=== PATIENT | female | born 1940 | race Caucasian/White ===

== ENCOUNTER 2016-10-11 06:42 | Inpatient (IN) ==
[2016-10-11] MEDS ORDERED: CeFAZolin Pre 2,000 MG/100 ML 2,000 MG/100 ML BAG IVPB ONE (06:54)
[2016-10-11] MEDS ORDERED: Albuterol 2.5 MG/3 ML NEBULIZER IH ONE (06:54)
[2016-10-11] MEDS ORDERED: Lidocaine -MPF 1% 2 ML VIAL ID ONE (06:54)
[2016-10-11] MEDS ORDERED: Albuterol 2.5 MG/3 ML NEBULIZER ONE (06:56)
[2016-10-11] MEDS ORDERED: *HR* Succinylcholine 200 MG/10 ML VIAL IVP ONE (07:00)
[2016-10-11] MEDS ORDERED: Lidocaine -MPF 2% 2 ML VIAL ONE ×2 (07:00→07:52)
[2016-10-11] MEDS ORDERED: *HR* Propofol 200 MG/20 ML VIAL IVP ONE (07:00)
[2016-10-11] MEDS ORDERED: *HR* Phenylephrine 10 MG/ML VIAL ONE (07:00)
[2016-10-11] MEDS ORDERED: *HR* FentaNYL (PF) 100 MCG/2 ML VIAL ONE (07:00)
[2016-10-11] MEDS ORDERED: Ringers Solution, Lactated 1,000 ML IVC SCH (07:00)
[2016-10-11] MEDS ORDERED: Ondansetron 4 MG/2 ML VIAL ONE (07:00)
[2016-10-11] MEDS ORDERED: *HR* Etomidate 40 MG/20 ML VIAL IVP ONE (07:00)
[2016-10-11] MEDS ORDERED: *HR* Midazolam HCl 2 MG/2 ML VIAL ONE (07:00)
[2016-10-11] MEDS ORDERED: Dexamethasone 4 MG/ML VIAL ONE (07:00)
[2016-10-11] MEDS ORDERED: Heparin 1,000 UNITS/500 mL NS 500 ML ONE (07:01)
--- NOTE | 2016-10-11 07:29 | Anesthesia Evaluation PreOp ---
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 Other Medical History: Renal (stage III CKD), Thyroid Anesthesia History: No Prior Anesthetic Complications Medications and Allergies Acetylcysteine [Nac] 600 mg PO BID 10/11/16 [History] Albuterol Sulfate [Ventolin Hfa] 2 puff PO Q4HR PRN 10/11/16 [History] Aspirin/Calcium Carbonate/Mag [Bufferin 325 mg Tablet] 650 mg PO QPM 10/11/16 [ History] Biotin 5 mg PO QDPC 10/11/16 [History] Budesonide/Formoterol 160/4.5 [Symbicort 160/4.5] 2 puff PO BID 10/11/16 [ History] LORazepam [Ativan] 1 mg PO HS 10/11/16 [History] Levothyroxine Sodium [Levoxyl] 75 mcg PO QDPC 10/11/16 [History] Lisinopril [Zestril] 10 mg PO DAILY 10/11/16 [History] Multivitamin [Multivitamins] 1 each PO QDPC 10/11/16 [History] Omeprazole [PriLOSEC] 20 mg PO DAILY 10/11/16 [History] hydroCHLOROthiazide [Hydrochlorothiazide] 25 mg PO DAILY 10/11/16 [History] Allergies Sulfa (Sulfonamide Antibiotics) Allergy (Verified 01/25/16 13:52) Hives - Meds/Allergy Pre-op Review Medications Reviewed: Yes Allergies Reviewed: Yes Beta Blockers on Current Med List: No Anesthesia Results - Labs Laboratory Tests 10/07/16 10/07/16 10/07/16 15:10 15:10 15:10 WBC 6.0 Hgb 10.8 L Hct 31.9 L Plt Count 217 PT 11.0 INR 1.0 APTT 27.0 Sodium 139 Potassium 3.7 Chloride 104 Carbon Dioxide 24 BUN 18 Creatinine Est GFR ( Amer) Est GFR (Non-Af Amer) Glucose 125 H Calculated Osmolality 291 Calcium 9.5 10/07/16 15:14 WBC Hgb Hct Plt Count PT INR APTT Sodium Potassium Chloride Carbon Dioxide BUN Creatinine 1.62 H Est GFR ( Amer) 37 L Est GFR (Non-Af Amer) 31 L Glucose Calculated Osmolality Calcium - Imaging EKG: report reviewed, image reviewed (SR with nonspecific ST/T wave abnormalities) Additional studies: Nuclear Stress Test: Impression: Perfusion imaging was negative for ischemia or infarct. Pharmacologic ECG was negative for ischemia at the level of heart rate achieved. Gated EF = >70%. Anesthesia Exam Weight: 48 kg NPO (# of Hours): >> 8 hrs - HEENT Pupil (Motor): Pupils equal, EOMI Mallampati: III Teeth: Poor dentition Oral Opening: Greater than 3 - NEEDLE BOARD REPAIRER LOC: Oriented NEEDLE BOARD REPAIRER Motor: Normal RUE, Normal LUE, Normal RLE, Normal LLE, Normal Face - Cardiac Rhythm: Regular Murmur: None - Pulmonary Breath Sounds: bilateral Clear Respiratory Effort: Symmetrical Anesthesia Assess/Plan ASA Score: 3 Modified [place] Scale for Level of Consciousness: Cooperative, oriented, and tranquil Anesthetic Plan: General Monitoring Plan: Standard Monitors, A-Line Recovery Plan: PACU
--- NOTE | 2016-10-11 07:50 | History & Physical Report ---
Date of Encounter: 10/11/16 Time of Encounter: 07:45 24 Hour HP Update - Instructions Instructions: If the History and Physical is less than 30 days old and was completed prior to A.M. admission and or procedure and has NOT been updated on calendar day of procedure please complete this update prior to performing procedure. - Update Patient reports changes in Medical Condition: No Changes in examination, assessment, or condition: No Changes in Medication: No Preop tests/diagnostics Reviewed: Yes Pre-Op MRSA Screen: Negative Surgery Remains Indicated: Yes Consent for Planned Operative Procedure(s) Verified: Yes - Pre-Operative Checklist Preoperative Checklist Indicated: Yes Prophylactic Antibiotic Ordered: Yes Home Medications Include Beta Mari: No Beta Mari Taken Today (Day of Surgery): No Beta Mari Taken Yesterday (Day Prior to Surgery): No Is VTE Prophylaxis Indicated?: Yes
[2016-10-11] MEDS ORDERED: Heparin 1,000 UNITS/500 mL NS 2,000 ML ONE (07:53)
[2016-10-11] MEDS ORDERED: EPHEDrine 50 MG/ML VIAL ONE (08:40)
[2016-10-11] MEDS ORDERED: Hydrocortisone Sodium Succ 100 MG/2 ML VIAL ONE (08:51)
[2016-10-11] MEDS ORDERED: *HR* HYDROmorphone 2 MG/ML SYRINGE ONE (08:58)
[2016-10-11] MEDS ORDERED: *HR* Heparin 5,000 UNIT/ML VIAL ONE (08:59)
[2016-10-11] MEDS ORDERED: *HR* HYDROmorphone (PF) 1 MG/ML SYRINGE IVP PRN (09:32)
--- NOTE | 2016-10-11 11:30 | Operative Note ---
Date of procedure: 10/11/16 Pre-op diagnosis: AAA Post-op diagnosis: same Procedure: Endovascular repair of AAA Complications: none Anesthesia: GETA Surgeon: Eitan Isaac Estimated blood loss (cc): 150 Specimen: none Condition: stable Disposition: PACU Procedure in Detail: Vicki Ortiz is a 76-year-old white female who was found to have a 5-1/2 cm abdominal aortic aneurysm on evaluation for left hip pain. The patient now comes to surgery for elective endovascular aneurysm repair. Procedure After informed consent was obtained the patient was taken to the operating room. General endotracheal anesthesia was established with arterial line pressure monitoring. A timeout protocol was observed after the patient was sterilely prepped and draped. 2 incisions were then made one in each groin. Dissection was carried down to perform an open exposure of the femoral systems. Control was obtained of the femoral arteries. After this was done femoral arteries were punctured with an 18-gauge needle in a retrograde orientation. A guidewire was then inserted into the aorta via both groins. The needle was removed and an 8 Egyptian sheath and dilator was placed into the vessels. Sheaths were aspirated and flushed after removal of the dilator. Heparin was given in a dose of 5000 units intravenously. A pigtail catheter was then inserted over the wire in the right groin. An abdominal aortogram was then obtained to identify and sander the renal arteries. With this done an Amplatz wire was placed through the pigtail catheter into the supra renal aorta and into the proximal aspect of the descending thoracic aorta. The main body was then selected and this was a Medtronic IIs Endurant graft system bifurcated main body. This was a 25 x 14 x 103 mm. component. This was placed into the juxtarenal abdominal aorta. The suprarenal stent was deployed. The device was deployed to the point that the docking limb for the left side was open. This right-sided device was then left in position and attention was then directed to the left side. Using the guidewire placed via the left side a Rubicon catheter was used and this was placed so that the wire could then selectively be placed into the left docking limb. After this was secured the Rubicon catheter was advanced into the main body and contrast was injected to ensure that the device was in the correct location. With this done an Amplatz wire was then inserted and advanced and also placed in the proximal aspect of the descending thoracic aorta. A retrograde angiogram through the left groin sheath was then performed. With this information the left limb stent graft was selected. A 16 x 13 x 124 mm device was selected. This was then placed under fluoroscopic control into the left sided docking limb and in to the distal aspect of the left common iliac artery. After this was achieved the carrying device was removed. An 11 Egyptian sheath was then placed into the left groin. Attention was then directed back to the right side. The right-sided device was then totally deployed. The carrier device was then removed and 11 Egyptian sheath placed into the right groin. A retrograde angiogram was performed after reinsertion of the pigtail catheter with radio opaque markers for measurement. The third and final component was then selected and this was a 16 x 10 x 124 mm stent graft limb. This was then deployed under fluoroscopic control with docking into the main body and extension down to the distal aspect of the right common iliac artery. The carrying device was then removed and the 11 Egyptian sheath reinserted. The Reliant balloon was then inserted via both the right and left sides. It was gently inflated in the graft so that the graft would be gently totally expanded to adhere to the wall of the aorta proximally and distally. With this done the pigtail catheter was reinserted and a completion aortogram was obtained. This demonstrated patency of the renal arteries without compromise of the lumen of these vessels. The iliac bifurcation was preserved on both sides. There were no findings of endovascular leaks. The graft appeared to be in appropriate position and so therefore the carrying devices and wires were removed. The groins were then irrigated and the sheaths removed from the common femoral arteries. The arterial puncture site was repaired with 6-0 Prolene suture. After appropriate backbleeding and flushing pulsatile flow was restored to the lower extremities. Excellent Doppler signals were identified. There were no hemodynamic distress issues noted with opening of the limbs. The groin areas were then irrigated with antibiotic containing solution. Hemostasis was achieved. The incisions were closed in layers using absorbable suture. A dry sterile dressing was applied over each groin incision. He has noted blood loss was 150 mL. The patient was extubated in the operating room and taken to the recovery room in stable condition.
--- NOTE | 2016-10-11 12:21 | Anesthesia Evaluation Post Op ---
Date of Encounter: 10/11/16 Time of Encounter: 12:19 - Vital Signs Vital Signs: Last Vital Signs Temp 97.0 F L 10/11/16 12:08 Pulse 65 10/11/16 12:08 Resp 16 10/11/16 12:08 BP 92/43 10/11/16 12:08 Pulse Ox 99 10/11/16 12:08 - Lungs Lungs: Clear Ascult./Percussion - Airway Airway: Non-obstructed - Cardiovascular Regular Rate - Mental Status Mental Status: Alert & Oriented, Answers Appropriately - Pain Pain Scale: 2 - Nausea Vomiting Nausea Vomiting: Not Present - Hydration Hydration: NPO, Guerrero catheter - Discharge PostOp Status: Transfer Patient to floor
[2016-10-11] MEDS ORDERED: *HR* Morphine 2 MG/ML SYRINGE IVP PRN ×2 (12:35)
[2016-10-11] MEDS ORDERED: Acetaminophen 325 MG TABLET PO PRN (12:35)
[2016-10-11] MEDS ORDERED: Ondansetron 4 MG/2 ML VIAL IVP PRN (12:35)
[2016-10-11] MEDS ORDERED: Naloxone 0.4 MG/ML INJ IVP PRN (12:35)
--- NOTE | 2016-10-11 13:33 | Anesthesia Procedures ---
Date of Encounter: 10/11/16 Time of Encounter: 08:10 Procedures: Anesthesia - Arterial Line Consent obtained: written consent Time out performed: Yes Sedation: Versed (mg): 1 Sedation: Fentanyl (mcg): 50 Supplemental Oxygen via Nasal Cannula (L/min): 2 Local Anesthetic: Lidocaine 1% Size (Gauge): 20 Length (inches): 1 3/4 Technique Used: sterile prep, direct puncture technique Post-Procedure: line taped into place Patient tolerated procedure: well Complications: none Site: Radial R
[2016-10-11] MEDS: ceFAZolin 2,000 MG in D5% in Water 100 ML IVPB SCH ×2 (15:39→23:47)
[2016-10-11] MEDS: Ringers Solution, Lactated 1,000 ML IVC SCH (15:39)
[2016-10-11] MEDS: MAG PO SCH (15:40)
[2016-10-11] MEDS: CALCIUM CARBONATE PO SCH (15:40)
[2016-10-11] MEDS: ASPIRIN PO SCH (15:40)
[2016-10-11] MEDS: *HR* LORazepam 1 MG TABLET PO SCH (19:51)
[2016-10-11] MEDS: *HR* Acetylcysteine 20% 600 MG/3 ML ORAL SYRINGE PO SCH (20:11)
[2016-10-11] MEDS: Budesonide/Formoterol 160/4.5 MDI IH SCH (20:28)
--- NOTE | 2016-10-11 22:27 | Discharge Summary ---
Date of Encounter: 10/12/16 Time of Encounter: 09:35 - Discharge Diagnosis (1) AAA (abdominal aortic aneurysm) Priority: Primary Status: Acute Comments: Patient was being worked up for left hip pain with a CT scan. This revealed a 5.5 cm abdominal aortic aneurysm. The patient was then referred to vascular surgery for that worked the patient up and recommended elective surgical repair. The patient was admitted for this procedure. Under general endotracheal anesthesia the patient underwent an endovascular abdominal aortic aneurysm repair using a Medtronics device. The patient tolerated the procedure well and there were no periprocedural complications. Qualifiers: Presence of rupture: without rupture Qualified Code(s): I71.4 - Abdominal aortic aneurysm, without rupture (2) CKD (chronic kidney disease) stage 3, GFR 30-59 ml/min Priority: Secondary Status: Chronic Comments: Patient is under medical care for her CKD. The patient was given extra fluid as well as Mucomyst and intravenous sodium bicarbonate around the time of her exposure to contrast which was used during the endovascular aneurysm repair. (3) COPD (chronic obstructive pulmonary disease) with chronic bronchitis Priority: Secondary Status: Chronic Comments: Patient has long history of chronic bronchitis. (4) Acute blood loss as cause of postoperative anemia Priority: Secondary Status: Acute Comments: Patient has combination of aggressive hydration and blood loss associated with surgery causing her hemoglobin to be 7.2. As she has a borderline O2 saturation high 80s and low 90s and a history of COPD chronic bronchitis I feel it is indicated to offer her 1 unit of blood transfusion this morning prior to discharge. I have discussed this with the patient. This will assist with her oxygenation and also her overall sense of well-being and recuperation following surgery. The patient will also be given Lasix intravenously following the blood transfusion and discharge will been occur later this afternoon. - Discharge Medications Prescriptions: HYDROcodone/Acet 5/325 mg [[place] 5-325 mg] 1 tab PO Q6HR PRN #10 tab PRN Reason: Moderate Pain Ferrous Sulfate 324 mg PO BID #60 tablet.dr Zheng Medications: Albuterol Sulfate [Ventolin Hfa] 2 puff PO Q4HR PRN 10/11/16 [History] Aspirin/Calcium Carbonate/Mag [Bufferin 325 mg Tablet] 650 mg PO QPM 10/11/16 [ History] Biotin 5 mg PO QDPC 10/11/16 [History] Budesonide/Formoterol 160/4.5 [Symbicort 160/4.5] 2 puff PO BID 10/11/16 [ History] LORazepam [Ativan] 1 mg PO HS 10/11/16 [History] Levothyroxine Sodium [Levoxyl] 75 mcg PO QDPC 10/11/16 [History] Lisinopril [Zestril] 10 mg PO DAILY 10/11/16 [History] Multivitamin [Multivitamins] 1 each PO QDPC 10/11/16 [History] Omeprazole [PriLOSEC] 20 mg PO DAILY 10/11/16 [History] hydroCHLOROthiazide [Hydrochlorothiazide] 25 mg PO DAILY 10/11/16 [History] Ferrous Sulfate 324 mg PO BID #60 tablet. 10/12/16 [Rx] HYDROcodone/Acet 5/325 mg [[place] 5-325 mg] 1 tab PO Q6HR PRN #10 tab 10/12/16 [ Rx] Allergies/Adverse Reactions: Allergies Sulfa (Sulfonamide Antibiotics) Allergy (Verified 01/25/16 13:52) Hives Date of admission: 10/11/16 12:31 Primary care physician: Sheila Herrera Consults: None Procedure(s) Performed: Endovascular repair of abdominal aortic aneurysm Discharging clinician: Eitan Isaac Anticipated date of discharge: 10/12/16 - Patient Status Disposition: Home, Self-Care Condition: Good Functional capacity at discharge: independent ambulation Overall status at discharge: patient is progressing back to baseline - Discharge Instructions Follow Up With: Flora Madsen CNP [Advanced Practice Nurse] - 10/17/16 10:30 am Eitan Isaac MD [Partnered Physician] - 10/21/16 8:30 am (This appointment is in [place]) Additional Instructions: Keep surgical incisions dry for 5 days following surgery. No lifting greater than 10 pounds. No automobile driving. Patient may ambulate as tolerated. Patient may use stairs as tolerated. Resume usual home medications. Patient will receive a prescription for iron supplement and [place] for analgesia upon discharge. - Diet and Activity Activity: increase activity as tolerated Diet: advance to your usual diet - Hospital Course Hospital course: Ms. Ortiz is a 76 year old female With a 5.5 cm abdominal aortic aneurysm. This was found on evaluation of left hip pain. The patient underwent endovascular repair of the aneurysm yesterday. The patient had an uneventful perioperative course. The patient's renal function remained stable and the creatinine actually improved following surgery with the preoperative hydration and bicarbonate and Mucomyst. The patient was noted to have a decrease in her hemoglobin to 7.2. This is a combination of hydration and blood loss associated with the surgery. Therefore as she has COPD with borderline O2 saturation I recommended that one unit of blood be transfused prior to discharge. This be done this morning and then the patient will be given Lasix and then will be discharged to home later today. Instructions were given in regards to diet and exercise and medications as well as wound care. The patient will receive a prescription for analgesia and iron supplement upon discharge. - Time Spent with Patient Total time spent providing and/or coordinating discharge services: Exam Vital Signs, Last 4 Hours Temp Pulse Resp BP Pulse Ox 10/11/16 20:28 16 96 10/11/16 19:12 97.7 F 71 18 99/59 95 General: Present: Conversant, No Apparent Distress, Well developed, Well nourished HEENT: Present: Atraumatic Neck: Absent: JVD Cardiac: Present: Reg Rate and Rhythm Lungs: Present: Decreased breath sounds Neuro: Present: Alert and responsive, No focal deficits noted Abdomen: Present: Soft, Non-tender. Absent: Masses Vascular: Present: Surgical incisions (Groin incisions are clean and dry.) Skin: Present: No rashes noted on visualized skin - VTE Documentation of Mechanical Device: Intermittent pneumatic compression device
[2016-10-12] MEDS: *HR* HYDROcodone/Acet 5/325 mg TABLET PO PRN ×2 (03:24→17:42)
[2016-10-12 03:29] LABS: Basophils % 0.1 %; Eosinophils % 0.2 %; Hematocrit 21.5 % (35.3-44.9); Hemoglobin 7.2 g/dL (11.5-15.4); Immature Granulocytes % 0.4 % (0-4); Lymphocytes # 1.1 K/mcL (0.6-4.6); Lymphocytes % 11.2 %; Mean Corpuscular HGB Conc 33.5 g/dL (31.6-35.5); Mean Corpuscular Hemoglobin 32.4 pg (28.0-33.3); Mean Corpuscular Volume 96.8 fL (83.0-100.0); Mean Platelet Volume 10.4 fL (9.4-12.4); Monocytes # 0.8 K/mcL (0.0-1.3); Neutrophils # 7.8 K/mcL (1.6-8.9); Platelet Count 115 K/mcL (140-400); Red Blood Count 2.22 M/mcL (3.82-4.97); Red Cell Distribution Width 13.5 % (11.5-14.5); Segmented Neutrophils % 80.1 %
[2016-10-12 03:39] LABS: BUN/Creatinine Ratio 14 (6-26); Blood Urea Nitrogen 14 mg/dL (7-20); Carbon Dioxide 28 mEq/L (19-29); Chloride 105 mEq/L (98-109); Glucose 107 mg/dL (70-99); Osmolality,Calculated 285 (280-300); Potassium 3.5 mEq/L (3.5-4.5); Sodium 137 mEq/L (136-145); eGFR For African Americans > 60 (> 60); eGFR For Non-African Americans 55 (> 60)
[2016-10-12] MEDS: ceFAZolin 2,000 MG in D5% in Water 100 ML IVPB SCH (06:32)
[2016-10-12] MEDS: Budesonide/Formoterol 160/4.5 MDI IH SCH ×2 (07:55→22:30)
[2016-10-12] MEDS: Ringers Solution, Lactated 1,000 ML IVC SCH (08:50)
[2016-10-12] MEDS ORDERED: Furosemide 20 MG/2 ML VIAL IVP ONE (08:58)
[2016-10-12] MEDS ORDERED: hydroCHLOROthiazide 25 MG TABLET PO SCH (09:00)
[2016-10-12] MEDS: Multivit/Ca/Min/Fe/FA 1 TAB TABLET PO SCH (09:18)
[2016-10-12] MEDS: (Biotin [Biotin] 5 MG) PO SCH (09:19)
[2016-10-12] MEDS ORDERED: 0.9 % Sodium Chloride 250 ML ONE (10:05)
[2016-10-12] MEDS: *HR* Acetylcysteine 20% 600 MG/3 ML ORAL SYRINGE PO SCH ×2 (11:25→20:23)
[2016-10-12] MEDS ORDERED: Furosemide 40 MG/4 ML VIAL IVP ONE (14:36)
[2016-10-12] MEDS ORDERED: Furosemide 40 MG/4 ML VIAL ONE (14:40)
[2016-10-12] MEDS: CALCIUM CARBONATE PO SCH (17:43)
[2016-10-12] MEDS: MAG PO SCH (17:43)
[2016-10-12] MEDS: ASPIRIN PO SCH (17:43)
[2016-10-12] MEDS: Ipratropium/Albuterol Neb 3 ML IH SCH ×2 (17:55→22:30)
[2016-10-12 19:04] LABS: Basophils % 0.1 %; Eosinophils # 0.1 K/mcL (0.0-0.6); Eosinophils % 0.8 %; Hematocrit 28.5 % (35.3-44.9); Immature Granulocytes % 0.5 % (0-4); Lymphocytes % 9.5 %; Mean Corpuscular Hemoglobin 30.2 pg (28.0-33.3); Mean Corpuscular Volume 91.6 fL (83.0-100.0); Mean Platelet Volume 10.5 fL (9.4-12.4); Monocytes # 1.1 K/mcL (0.0-1.3); Monocytes % 10.6 %; Neutrophils # 8.4 K/mcL (1.6-8.9); Platelet Count 129 K/mcL (140-400); Red Blood Count 3.11 M/mcL (3.82-4.97); Red Cell Distribution Width 17.6 % (11.5-14.5); Segmented Neutrophils % 78.5 %
[2016-10-12 19:05] LABS: Hemoglobin 9.4 g/dL (11.5-15.4)
[2016-10-12 20:12] LABS: BUN/Creatinine Ratio 13 (6-26); Blood Urea Nitrogen 14 mg/dL (7-20); Calcium 8.4 mg/dL (8.6-10.8); Carbon Dioxide 32 mEq/L (19-29); Chloride 99 mEq/L (98-109); Glucose 123 mg/dL (70-99); Magnesium 0.9 mg/dL (1.6-2.6); Osmolality,Calculated 288 (280-300); Phosphorous 2.7 mg/dL (2.3-4.7); Potassium 3.1 mEq/L (3.5-4.5); Sodium 138 mEq/L (136-145); eGFR For African Americans > 60 (> 60); eGFR For Non-African Americans 50 (> 60)
[2016-10-12] MEDS ORDERED: D10 IVPB ONE (20:15)
[2016-10-12] MEDS ORDERED: MAGNESIUM SULFATE IVPB ONE (20:15)
[2016-10-12] MEDS ORDERED: WATER IVPB ONE (20:15)
[2016-10-12] MEDS: *HR* LORazepam 1 MG TABLET PO SCH (20:19)
--- NOTE | 2016-10-12 20:20 | Internal Medicine Consult Note ---
Date of Encounter: 10/12/16 Time of Encounter: 20:17 - Assessment and Plan (1) New onset a-fib Current Visit: Yes Status: Acute Assessment and plan: Replace IV Mg and PO K. start 30mg QID dilt PO in an attempt to spare gtt therapy. Will monitor overnight for now. Keep mg >2, K>4. Hold home HCTZ with cardizem to avoid low BP (2) AAA (abdominal aortic aneurysm) Current Visit: Yes Status: Acute Assessment and plan: management per surgery Qualifiers: Presence of rupture: without rupture Qualified Code(s): I71.4 - Abdominal aortic aneurysm, without rupture (3) CKD (chronic kidney disease) stage 3, GFR 30-59 ml/min Current Visit: Yes Status: Chronic Assessment and plan: continue to monitor with fluid manipulation and optimization (4) COPD (chronic obstructive pulmonary disease) with chronic bronchitis Current Visit: Yes Status: Chronic Assessment and plan: appears stable, mild concomitant vol overload being addressed Internal Medicine - CN: HPI - Data of Consult Requesting Physician: Eitan Isaac MD - Consult Narrative Reason for consult: AFib History of present illness: Ms. Ortiz is a 76 year old female with a hx of HTN and presents for elective EVAR 10/11/16 whose hospital course was c/b respiratory insufficiency and subsequent AFib rvr. She does not have a hx of AFib. She was noted to be tachycardic on monitor at 630 pm this evening with AFib confirming AFib. Post- surgery, her discharge was delayed due to new oxygen requirement. She received 1 pRBC to correct her anemia and also received a total of 60mg lasix today with output of > 3 L of urine. Recheck of electrolytes indicated low Mg and low K. She does not appear to be overtly symptoms of her AFib. Denies any improving or worsening factors. She tells me that she did not feel ready to return home. Past Med Surg Social Fam HX - Past Medical History Medical history: arthritis, hypertension, thyroid disease Psychiatric history: anxiety - Past Surgical History Surgical History: non-contributory, cataract - Social History Smoking Status: Former smoker Smokeless Tobacco Status: No Alcohol use: none Drug use: none Review of systems: ROS 14 point review of systems reviewed as best as possible given presentation. Pertinent positive or negative as per HPI or otherwise reviewed as negative Internal Medicine - CN: Meds Albuterol Sulfate [Ventolin Hfa] 2 puff PO Q4HR PRN 10/11/16 [History] Aspirin/Calcium Carbonate/Mag [Bufferin 325 mg Tablet] 650 mg PO QPM 10/11/16 [ History] Biotin 5 mg PO QDPC 10/11/16 [History] Budesonide/Formoterol 160/4.5 [Symbicort 160/4.5] 2 puff PO BID 10/11/16 [ History] LORazepam [Ativan] 1 mg PO HS 10/11/16 [History] Levothyroxine Sodium [Levoxyl] 75 mcg PO QDPC 10/11/16 [History] Lisinopril [Zestril] 10 mg PO DAILY 10/11/16 [History] Multivitamin [Multivitamins] 1 each PO QDPC 10/11/16 [History] Omeprazole [PriLOSEC] 20 mg PO DAILY 10/11/16 [History] hydroCHLOROthiazide [Hydrochlorothiazide] 25 mg PO DAILY 10/11/16 [History] Ferrous Sulfate 324 mg PO BID #60 tablet. 10/12/16 [Rx] HYDROcodone/Acet 5/325 mg [[place] 5-325 mg] 1 tab PO Q6HR PRN #10 tab 10/12/16 [ Rx] Allergies Sulfa (Sulfonamide Antibiotics) Allergy (Verified 01/25/16 13:52) Hives Internal Medicine - CN: Exam - Constitutional Vitals: Temp Pulse Resp BP Pulse Ox 98.7 F 146 16 105/62 91 10/12/16 19:10 10/12/16 19:10 10/12/16 19:10 10/12/16 19:10 10/12/16 19:10 Exam: General - AAO x 3 Psych - Appropriate affect/speech. No agitation Eyes - MASOUD. Eye lids intact. No scleral icterus ENT - Oral mucosa pink, dentition intact. External ear clear/dry/intact. No thyromegaly Lymphatics - No cervical/inguinal lympadenopathy Neuro - No gross peripheral or central neuro deficits with intact CN 2-12 exam Heart - irregularly irregular. S1 and S2 present. No added HS/murmurs appreciated. No elevated JVD appreciated. No calf swellings/erythema Lung - Adequate air entry b/l, No crackes/wheezes appreciated GI - Soft, non-tender. No hepatosplenomegaly/ascities. BS+ - No CVA/suprapubic tenderness or palpable bladder distension Skin - Intact. No rash/petechiae/ecchymosis. Warm extremities MSK - Joints with normal ROM. No joint swellings Internal Medicine - CN: Reslt - Labs CBC & Chem 7: 10/12/16 18:55 10/12/16 18:55 Labs: Short CBC 10/12/16 10/12/16 Range/Units 03:25 18:55 WBC 9.7 D 10.7 (4.3-11.1) K/mcL Hgb 7.2 L D 9.4 L D (11.5-15.4) g/dL Hct 21.5 L 28.5 L (35.3-44.9) % Plt Count 115 L 129 L (140-400) K/mcL Neutrophils # 7.8 8.4 (1.6-8.9) K/mcL BMP 10/12/16 10/12/16 03:25 18:55 Sodium 137 138 Potassium 3.5 3.1 L Chloride 105 99 Carbon Dioxide 28 32 H BUN 14 14 Creatinine 0.99 1.06 Glucose 107 H 123 H Calcium 8.0 L 8.4 L - Impressions Impressions Chest X-Ray 10/12/16 14:38 IMPRESSION: Chronic COPD. Right basal infiltrate may represent pneumonia. Trace of right pleural effusion. D/ / 10/12/2016 16:36:41 Bethany Poole MD / Alisha Chacon Interpreting Provider: Bethany Poole MD Consult Discharge Plan - Plan Instructions: Hydrocodone/Acetaminophen (By mouth), Blood Transfusion (DC), Peripheral Vascular Disorders (DC), Endovascular Abdominal Aortic Aneurysm Repair (DC), Anemia (GEN) Additional Instructions: Keep surgical incisions dry for 5 days following surgery. No lifting greater than 10 pounds. No automobile driving. Patient may ambulate as tolerated. Patient may use stairs as tolerated. Resume usual home medications. Patient will receive a prescription for iron supplement and [place] for analgesia upon discharge. Referrals: Flora Madsen CNP [Advanced Practice Nurse] - 10/17/16 10:30 am Eitan Isaac MD [Partnered Physician] - 10/21/16 8:30 am (This appointment is in [place]) Prescriptions: HYDROcodone/Acet 5/325 mg [[place] 5-325 mg] 1 tab PO Q6HR PRN #10 tab PRN Reason: Moderate Pain Ferrous Sulfate 324 mg PO BID #60 tablet.
[2016-10-12] MEDS ORDERED: Magnesium Sulfate 2 GM in D5% in Water 100 ML IVPB SCH (20:45)
[2016-10-12] MEDS ORDERED: Levofloxacin 750 MG/150 ML 750 MG/150 ML BAG IVPB ONE (21:00)
[2016-10-12] MEDS: Magnesium Sulfate 2 GM in D5% in Water 100 ML IVPB SCH (21:23)
[2016-10-12] MEDS ORDERED: Magnesium Sulfate 1 GM in D5% in Water 100 ML IVPB ONE (22:45)
[2016-10-13] MEDS: Magnesium Sulfate 2 GM in D5% in Water 100 ML IVPB SCH (01:00)
[2016-10-13 01:29] LABS: Basophils % 0.1 %; Eosinophils # 0.1 K/mcL (0.0-0.6); Eosinophils % 0.5 %; Hematocrit 27.7 % (35.3-44.9); Hemoglobin 9.2 g/dL (11.5-15.4); Immature Granulocytes % 0.5 % (0-4); Lymphocytes % 9.1 %; Mean Corpuscular HGB Conc 33.2 g/dL (31.6-35.5); Mean Corpuscular Hemoglobin 30.3 pg (28.0-33.3); Mean Corpuscular Volume 91.1 fL (83.0-100.0); Mean Platelet Volume 10.8 fL (9.4-12.4); Monocytes # 1.1 K/mcL (0.0-1.3); Monocytes % 9.6 %; Neutrophils # 8.9 K/mcL (1.6-8.9); Platelet Count 127 K/mcL (140-400); Red Blood Count 3.04 M/mcL (3.82-4.97); Red Cell Distribution Width 17.8 % (11.5-14.5); Segmented Neutrophils % 80.2 %
[2016-10-13] MEDS: Ipratropium/Albuterol Neb 3 ML IH SCH ×4 (03:53→21:27)
[2016-10-13] MEDS ORDERED: Magnesium Sulfate 2 GM in D5% in Water 100 ML IVPB PRN (04:12)
[2016-10-13] MEDS ORDERED: Sodium Phosphate 30 MMOL in D5% in Water 100 ML IVPB PRN (04:12)
[2016-10-13] MEDS ORDERED: Calcium Gluconate 1,000 MG in D5% in Water 100 ML IVPB PRN (04:12)
[2016-10-13 05:45] LABS: Ionized Calcium 1.07 mmol/L (1.15-1.35)
[2016-10-13 05:55] LABS: Calcium 8.5 mg/dL (8.6-10.8); Magnesium 2.5 mg/dL (1.6-2.6); Phosphorous 2.1 mg/dL (2.3-4.7); Potassium 3.6 mEq/L (3.5-4.5)
[2016-10-13] MEDS ORDERED: Calcium Gluconate 1,000 MG in D5% in Water 100 ML IVPB ONE (06:35)
--- NOTE | 2016-10-13 06:51 | Pulmonology Consult Note ---
Date of Encounter: 10/13/16 Time of Encounter: 06:51 Assessment and Plan (1) Acute respiratory failure with hypoxia Current Visit: Yes Status: Acute Impression: In conclusion is a 76-year-old woman with postoperative acute respiratory failure which is likely secondary to pneumonia complicated by mild COPD exacerbation. Clearly in the postoperative setting she has some degree of atelectasis which is also contributing to her noted hypoxemia. Clearly pulmonary embolus is in the differential diagnosis for postoperative hypoxemia although her Well's score is quite low and I feel that we have several alternative hypotheses that better explain this hypoxia. Additionally, I have a strong suspicion for underlying heart failure with preserved ejection fraction ( diastolic dysfunction) although she does not have a recent echocardiogram demonstrating this. If this is the case the acute setting atrial fibrillation ( likely s/t to hypoxemia) with rapid ventricular response would also be expected to increase cardiac filling pressures and lead to resultant pulmonary edema which would also complicate this picture. Recs: -Cont Supplemental O2 to keep SaO2 % >88-92% -I have sent blood cultures and sputum cultures to further evaluate for PNA those results are pending at this time -I started empiric antimicrobial coverage with Levaquin which can be modified based upon microbiological sensitivities -I would recommend aggressive pulmonary hygiene including incentive spirometry out of bed to chair and ambulation as tolerated/safe with supervision -I have added a scheduled andrew/rogerio to her bronchodilator regimen along with continuation of home ICS/LABA -Recommend 40 mg prednisone by mouth for the next 5 days -I have added on BNP to her labs to evaluate for HFpEF and would recommend 2D ECHO and formal Cardiology evaluation for w/u of arial fibrillation and need for long-term anticoagulation -Net even to slightly negative fluid balance with daily monitoring of renal function and electrolyte replacement (goal mg2+ >2.0 and K+ >4.0) -Chemical DVT prophylaxis unless Surgery service feels this is contraindicated Pulmonary will continue to follow. (2) COPD with acute exacerbation Current Visit: Yes Status: Acute (3) Atrial fibrillation with rapid ventricular response Current Visit: Yes Status: Acute (4) Former smoker Current Visit: Yes Status: Acute (5) DVT prophylaxis Current Visit: Yes Status: Acute History of Present Illness Consult date: 10/12/16 Requesting physician: Eitan Isaac Reason for consult: hypoxemia Chief complaint: Productive cough History of present illness: Ms. Ortiz is a pleasant 76-year-old woman who I had the pleasure to see a day on the inpatient pulmonary consult service. A consult was placed as the patient is in the postoperative period status post endovascular repair for a 5.5 cm abdominal aortic aneurysm. The surgery itself was quite successful postoperatively patient is noted to have it new oxygen requirement. She has been requiring anywhere from 2-3 L nasal cannula to keep saturation around 90-92 %. His speaking with her today she tells me that she has had a cough productive of yellowish-brown sputum for the last several weeks even leading up into the time of surgery. She is also felt chest heaviness during this time. She had a chest x-ray performed yesterday which is notable for a possible right- sided infiltrate and she has been given a loop diuretic for possible pulmonary edema she is nearly 3 L negative after that. Her course was further complicated overnight and that she was noted to go into atrial fibrillation with rapid ventricular response in the room when I am seeing her now she has been in and out of atrial fibrillation with RVR apparently she was placed on a unique blocking agent by mouth for this she was also noted to have a low magnesium (less than 1) for which her magnesium is undergoing repletion. Review of her past medical records I see that she has had pulmonary function testing prior to surgery which is notable for mild obstruction and a severe reduction in efficiency of oxygen transfer processes DLCO) is out of proportion to the degree of obstruction seen on spirometry. She also had a preoperative nuclear stress test which was negative for inducible ischemia and was notable for a preserved ejection fraction. She had a long smoking history although she quit in 2001. She was diagnosed with COPD at that time and has had recurrent bouts of bronchitis subsequently. Her symptoms are managed on a long-acting inhaled corticosteroid/long-acting beta agonist combination metered dose inhaler (Symbicort) she has noted that in the past when she gets bouts of bronchitis and the only things that seems to alleviate her symptoms has been enteral steroids. Although she tries to stay fairly active including doing gardening she has noted some limitation in her activities secondary to dyspnea. I do not see a recent 2-dimensional echocardiogram in her medical record. 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 Otherwise she denies any exposure to environmental or industrial pollutants Past Med Surg Social Fam HX - Past Medical History Medical history: arthritis, hypertension, thyroid disease Psychiatric history: anxiety - Past Surgical History Surgical History: non-contributory, cataract - Social History Smoking Status: Former smoker Smokeless Tobacco Status: No Alcohol use: none Drug use: none Medications and Allergies Albuterol Sulfate [Ventolin Hfa] 2 puff PO Q4HR PRN 10/11/16 [History] Aspirin/Calcium Carbonate/Mag [Bufferin 325 mg Tablet] 650 mg PO QPM 10/11/16 [ History] Biotin 5 mg PO QDPC 10/11/16 [History] Budesonide/Formoterol 160/4.5 [Symbicort 160/4.5] 2 puff PO BID 10/11/16 [ History] LORazepam [Ativan] 1 mg PO HS 10/11/16 [History] Levothyroxine Sodium [Levoxyl] 75 mcg PO QDPC 10/11/16 [History] Lisinopril [Zestril] 10 mg PO DAILY 10/11/16 [History] Multivitamin [Multivitamins] 1 each PO QDPC 10/11/16 [History] Omeprazole [PriLOSEC] 20 mg PO DAILY 10/11/16 [History] hydroCHLOROthiazide [Hydrochlorothiazide] 25 mg PO DAILY 10/11/16 [History] Ferrous Sulfate 324 mg PO BID #60 tablet. 10/12/16 [Rx] HYDROcodone/Acet 5/325 mg [[place] 5-325 mg] 1 tab PO Q6HR PRN #10 tab 10/12/16 [ Rx] Allergies Sulfa (Sulfonamide Antibiotics) Allergy (Verified 01/25/16 13:52) Hives All Systems: A 10-system review of systems was performed and is negative for pertinent findings except as documented above in the HPI. Physical Examination Vital Signs: Vital Signs, Last 4 Hours Temp Pulse Resp BP Pulse Ox 10/13/16 02:51 98.1 F 136 16 87/68 92 General appearance: no acute distress, alert Eyes: nonicteric ENT: oropharynx dry Neck: supple, lymphadenopathy Effort: normal Auscultation: left: wheezes, right: rhonchi, bilateral: diminished breath sounds , rales Cardiovascular: irregular rhythm Gastrointestinal: normoactive bowel sounds, tender, non-distended Extremities: no cyanosis, no edema, pink and warm Musculoskeletal: no deformities normal mental status, non-focal exam mood appropriate Results - Laboratory Findings CBC and BMP: 10/13/16 01:07 10/13/16 05:18 Abnormal lab findings: Abnormal lab results RBC 3.04 M/mcL (3.82-4.97) L 10/13/16 01:07 Hgb 9.2 g/dL (11.5-15.4) L 10/13/16 01:07 Hct 27.7 % (35.3-44.9) L 10/13/16 01:07 RDW 17.8 % (11.5-14.5) H 10/13/16 01:07 Plt Count 127 K/mcL (140-400) L 10/13/16 01:07 Sodium 133 mEq/L (136-145) L 10/13/16 05:18 Chloride 94 mEq/L (98-109) L 10/13/16 05:18 Carbon Dioxide 34 mEq/L (19-29) H 10/13/16 05:18 Est GFR ( Amer) 59 (> 60) L 10/13/16 05:18 Est GFR (Non-Af Amer) 48 (> 60) L 10/13/16 05:18 Glucose 113 mg/dL (70-99) H 10/13/16 05:18 Calculated Osmolality 277 (280-300) L 10/13/16 05:18 Calcium 8.5 mg/dL (8.6-10.8) L 10/13/16 05:18 Ionized Calcium 1.07 mmol/L (1.15-1.35) L 10/13/16 05:18 Phosphorus 2.1 mg/dL (2.3-4.7) L 10/13/16 05:18 - Microbiology Findings Microbiology Findings: Microbiology, Last 48 Hours 10/13/16 01:00 Sputum Culture - Preliminary Sputum - Diagnostic Findings Chest x-ray: report reviewed, image reviewed - Clinical Findings Intake & Output: Intake & Output 10/12/16 10/12/16 10/13/16 15:59 23:59 07:59 Intake Total 675 / 675 208 / 208 Output Total 1400 / 1400 1350 / 1350 450 / 450 Balance -725 / -725 -1350 / -1350 -242 / -242 Weight 50.5 kg Consult Discharge Plan - Plan Instructions: Hydrocodone/Acetaminophen (By mouth), Blood Transfusion (DC), Peripheral Vascular Disorders (DC), Endovascular Abdominal Aortic Aneurysm Repair (DC), Anemia (GEN) Additional Instructions: Keep surgical incisions dry for 5 days following surgery. No lifting greater than 10 pounds. No automobile driving. Patient may ambulate as tolerated. Patient may use stairs as tolerated. Resume usual home medications. Patient will receive a prescription for iron supplement and [place] for analgesia upon discharge. Referrals: Flora Madsen CNP [Advanced Practice Nurse] - 10/17/16 10:30 am Eitan Isaac MD [Partnered Physician] - 10/21/16 8:30 am (This appointment is in [place]) Prescriptions: HYDROcodone/Acet 5/325 mg [[place] 5-325 mg] 1 tab PO Q6HR PRN #10 tab PRN Reason: Moderate Pain Ferrous Sulfate 324 mg PO BID #60 tablet.
[2016-10-13] MEDS: (Biotin [Biotin] 5 MG) PO SCH (07:50)
[2016-10-13] MEDS: predniSONE 20 MG TABLET PO SCH (08:10)
[2016-10-13] MEDS: Multivit/Ca/Min/Fe/FA 1 TAB TABLET PO SCH (08:10)
[2016-10-13] MEDS: *HR* Acetylcysteine 20% 600 MG/3 ML ORAL SYRINGE PO SCH (08:11)
[2016-10-13] MEDS: Levofloxacin 500 MG/100 ML 500 MG/100 ML BAG IVPB SCH (10:05)
[2016-10-13] MEDS: Budesonide/Formoterol 160/4.5 MDI IH SCH ×2 (10:36→21:27)
--- NOTE | 2016-10-13 12:10 | Vascular/[facility] Progress Note ---
Date of Encounter: 10/13/16 Time of Encounter: 12:06 - Assessment and plan (1) AAA (abdominal aortic aneurysm) Current Visit: Yes Status: Acute Patient tolerated procedure well as had no issues directly associated with the operation. Qualifiers: Presence of rupture: without rupture Qualified Code(s): I71.4 - Abdominal aortic aneurysm, without rupture (2) CKD (chronic kidney disease) stage 3, GFR 30-59 ml/min Current Visit: Yes Status: Chronic Renal function remained stable. (3) COPD (chronic obstructive pulmonary disease) with chronic bronchitis Current Visit: Yes Status: Chronic COPD has required oxygen supplementation. The patient does respond to supplemental oxygen and our goal today will be to wean the oxygen and increase her physical activities. Appreciate assistance from pulmonology. Empiric Levaquin has been given. The patient also has an additional inhaler and prednisone started on a short term course. (4) Acute blood loss as cause of postoperative anemia Current Visit: Yes Status: Acute Patient has responded appropriately to 1 unit of blood transfusion. There is no signs of ongoing bleeding. Further transfusion is not anticipated during this hospitalization. (5) New onset a-fib Current Visit: Yes Status: Acute Patient has responded to medical treatment and is now returned to sinus rhythm with a normal blood pressure. Discussion with patient/family: All of the above issues were discussed with the patient and family. All questions were answered. It was explained that the patient needs now to focus on increasing her physical activities and weaning the oxygen. She was made aware that if the oxygen cannot be successfully weaned she will require a short- term course of oxygen supplement at home. - Subjective Interval history: Mrs. Ortiz is a 76-year-old white female who is now postoperative day #2 from an endovascular repair of an abdominal aortic aneurysm. She has had a clinical problems beginning yesterday afternoon. She was noted to have anemia and was transfused 1 unit of blood. She had no significant improvement with her O2 saturation level and then at about 6:30 last night when on to develop acute onset atrial fibrillation. She was seen by the hospitalist service and calcium channel blockers were prescribed. Because of her persistent hypoxemia requiring O2 supplement a pulmonary consult was also requested. She was seen this morning and impaired dose of Levaquin was given as well as addition of further inhalers and a short-term course of oral prednisone. The patient is feeling better this morning. She feels more comfortable. Her electrolytes have corrected with supplementation. Her rhythm has converted to sinus earlier this morning. Vital Signs, Last 4 Hours Resp Pulse Ox 10/13/16 10:39 18 90 - Physical Examination General: Present: Conversant, No Apparent Distress HEENT: Present: Atraumatic Neck: Absent: JVD, Midline deformity Cardiac: Present: Reg Rate and Rhythm, Normal S1 and S2 Lungs: Present: Decreased breath sounds, Other (Patient has bilateral rhonchi but no rales and no wheezes.) Neuro: Present: Alert and responsive, No focal deficits noted Abdomen: Present: Soft, Non-tender Skin: Present: No rashes noted on visualized skin - VTE Documentation of Mechanical Device: Intermittent pneumatic compression device Results 10/13/16 01:07 10/13/16 05:18 Lab Results, Last 24 hours 10/12/16 10/12/16 10/13/16 18:55 18:55 01:07 WBC 10.7 11.1 Hgb 9.4 L D 9.2 L Hct 28.5 L 27.7 L Plt Count 129 L 127 L Sodium 138 Potassium 3.1 L Chloride 99 Carbon Dioxide 32 H BUN 14 Creatinine 1.06 Glucose 123 H Calcium 8.4 L Magnesium 0.9 L B-Natriuretic Peptide 10/13/16 10/13/16 05:18 07:54 WBC Hgb Hct Plt Count Sodium 133 L Potassium 3.6 Chloride 94 L Carbon Dioxide 34 H BUN 13 Creatinine 1.10 Glucose 113 H Calcium 8.5 L Magnesium 2.5 B-Natriuretic Peptide 903 H - Imaging / Other Tests Chest Xray: report reviewed, image reviewed (Chest x-ray is improved from yesterday to today. The patient had aggressive diuresis yesterday and the pulmonary vasculature is essentially normal.) Consult Discharge Plan - Plan Instructions: Hydrocodone/Acetaminophen (By mouth), Blood Transfusion (DC), Peripheral Vascular Disorders (DC), Endovascular Abdominal Aortic Aneurysm Repair (DC), Anemia (GEN) Additional Instructions: Keep surgical incisions dry for 5 days following surgery. No lifting greater than 10 pounds. No automobile driving. Patient may ambulate as tolerated. Patient may use stairs as tolerated. Resume usual home medications. Patient will receive a prescription for iron supplement and [place] for analgesia upon discharge. Referrals: Flora Madsen CNP [Advanced Practice Nurse] - 10/17/16 10:30 am Eitan Isaac MD [Partnered Physician] - 10/21/16 8:30 am (This appointment is in [place]) Prescriptions: HYDROcodone/Acet 5/325 mg [[place] 5-325 mg] 1 tab PO Q6HR PRN #10 tab PRN Reason: Moderate Pain Ferrous Sulfate 324 mg PO BID #60 tablet.
[2016-10-13 12:24] LABS: Ionized Calcium 1.06 mmol/L (1.15-1.35)
[2016-10-13 12:31] LABS: Phosphorous 2.1 mg/dL (2.3-4.7)
--- NOTE | 2016-10-13 13:27 | Cardiology Consult Note ---
Date of Encounter: 10/13/16 Time of Encounter: 13:30 Assessment and Plan (1) AAA (abdominal aortic aneurysm) Current Visit: Yes Status: Acute Per Cardiology: Status post endovascular abdominal aortic aneurysm repair Dr. Isaac October 11, 2016. Management per vascular surgery. Qualifiers: Qualified Code(s): I71.4 - Abdominal aortic aneurysm, without rupture (2) Acute blood loss as cause of postoperative anemia Current Visit: Yes Status: Acute Per Cardiology: Slightly improved status post one unit packed red blood cells. Continue to monitor closely. (3) Acute respiratory failure with hypoxia Current Visit: Yes Status: Acute Per Cardiology: Pulm following. Has COPd-- wright not use home O2. On antibiotics and steroids. (4) New onset a-fib Current Visit: Yes Status: Acute Per Cardiology: Apparent new onset A. fib and postoperative setting from endovascular AAA repair , acute blood loss anemia, hypomagnesemia, and acute on chronic respiratory failure. On Cardizem 30 mg by mouth every 6 hours in currently sinus rhythm in the 80s.. Patient noted to have significant pauses this am while in afib with longest pause 5.9 seconds. SBP 90-100's. Will check echo. Can consider switching to long-acting Cardizem once stabilizes. Negative outpatient nonexercise nuclear perfusion imaging September 2016 with EF 70% on stress test. Regarding long-term anticoagulation, status post acute blood loss anemia separately. We'll continue to follow H&H. Will need to address long-term anticoagulation during hospital course-- not sure if would be good candidate other than asa (falls frequently). Will need to address with vascular surgery recs for AC as well since postop. (5) Hypomagnesemia Current Visit: Yes Status: Acute Per Cardiology: Mg noted 0.09 and replaced to 2.5. Suspect contributing factor to afib. Monitor Mg and replace accordingly. (6) Hypothyroidism Current Visit: Yes Status: Chronic Per Cardiology: On synthroid, recent TSH 06/2016 9.358 and 10/07/16 0.049-- recommend further eval by hospitalist team (discussed with team). Qualifiers: Qualified Code(s): E03.9 - Hypothyroidism, unspecified Discussion w patient/family: The assessment and plan as outlined above was discussed with the patient who expressed understanding and agreement. All questions were answered. Thank you for involving us in the care of your patient. Please call with any questions. Discussed and reviewed with Dr. Alvarenga. Recommend social work consult for discharge planning. History of Present Illness Consult date: 10/13/16 Requesting physician: Michele Salas Consult reason: New afib Chief complaint: SOB History of present illness: Ms. Ortiz is a 76 year old female with a relevant past medical history of past history nicotine abuse, COPD, hypertension, hypothyroidism, abdominal aortic aneurysm with CT scan showing 5.5 x 5.3 cm aneurysm. Cardiology consult for new onset A. fib. Patient denies any known history of atrial fibrillation or coronary artery disease. Prior to hospitalization reports episodes of weakness and reported about 4 falls over the past year and most recent fall a few weeks ago. She denies any chest pain or palpitations. Denies any loss of consciousness. Denies any history of active bleeding or blood loss. Denies any history of TIA or CVA. Currently denies any chest pain. Reports mild short of breath, however unchanged from baseline. She confirms history of COPD does not utilize oxygen at home. Reports she quit smoking a few years ago smoked about one pack per day for 40 years. 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 Past Med Surg Social Fam HX - Past Medical History Attestation: Yes The following information was validated with the patient. Source: patient, old records reviewed Medical history: arthritis, COPD, hypertension, thyroid disease, other (AAA) Psychiatric history: anxiety - Past Surgical History Surgical History: non-contributory, cataract - Social History Smoking Status: Former smoker Smokeless Tobacco Status: No Alcohol use: none Drug use: none Medications and Allergies Albuterol Sulfate [Ventolin Hfa] 2 puff PO Q4HR PRN 10/11/16 [History] Aspirin/Calcium Carbonate/Mag [Bufferin 325 mg Tablet] 650 mg PO QPM 10/11/16 [ History] Biotin 5 mg PO QDPC 10/11/16 [History] Budesonide/Formoterol 160/4.5 [Symbicort 160/4.5] 2 puff PO BID 10/11/16 [ History] LORazepam [Ativan] 1 mg PO HS 10/11/16 [History] Levothyroxine Sodium [Levoxyl] 75 mcg PO QDPC 10/11/16 [History] Lisinopril [Zestril] 10 mg PO DAILY 10/11/16 [History] Multivitamin [Multivitamins] 1 each PO QDPC 10/11/16 [History] Omeprazole [PriLOSEC] 20 mg PO DAILY 10/11/16 [History] hydroCHLOROthiazide [Hydrochlorothiazide] 25 mg PO DAILY 10/11/16 [History] Ferrous Sulfate 324 mg PO BID #60 tablet. 10/12/16 [Rx] HYDROcodone/Acet 5/325 mg [[place] 5-325 mg] 1 tab PO Q6HR PRN #10 tab 10/12/16 [ Rx] Allergies Sulfa (Sulfonamide Antibiotics) Allergy (Verified 01/25/16 13:52) Hives All Systems Review: A 10-system review of systems was performed and is negative for pertinent findings except as documented above in the HPI. - Constitutional Constitutional: fatigue - Cardiovascular Cardiovascular: as per HPI, dyspnea at rest, dyspnea on exertion Physical Examination Vital Signs, Last 4 Hours Resp Pulse Ox 10/13/16 10:39 18 90 Selected Entries 10/13/16 07:43 10/13/16 10:39 10/13/16 12:30 Temperature 98.2 F Pulse Rate 82 Respiratory Rate 18 Blood Pressure 104/57 O2 Sat by Pulse Oximetry 90 Oxygen Flow Rate (LPM) 3 Oxygen Delivery Method Nasal Cannula General: Conversant, No Apparent Distress, Other (frail in appearance) HEENT: Atraumatic, Normocephaly, Mucus Membranes Moist Neck: No JVD, Normal carotid pulses Cardiac: Reg Rate and Rhythm, Normal S1 and S2, No Murmur Lungs: Other (diminished throughout) Neuro: Alert and responsive, No focal deficits noted Abdomen: Soft, Non-Tender Skin: No rashes noted on visualized skin, Other (Bilateral groin incision sites were approximated with mild ecchymosis) Musculoskeletal: No Chest Wall Tenderness Extremities: No Edema, Normal Pulses Results 10/13/16 01:07 10/13/16 12:05 Lab Results Laboratory Tests 10/07/16 10/12/16 10/12/16 15:10 03:25 03:25 Hgb 10.8 L 7.2 L D Hct 31.9 L 21.5 L Plt Count 217 115 L Potassium 3.5 Magnesium B-Natriuretic Peptide 10/12/16 10/13/16 10/13/16 18:55 01:07 05:18 Hgb 9.2 L Hct 27.7 L Plt Count 127 L Potassium 3.1 L Magnesium 0.9 L 2.5 B-Natriuretic Peptide 10/13/16 10/13/16 07:54 12:05 Hgb Hct Plt Count Potassium 4.0 Magnesium B-Natriuretic Peptide 903 H Laboratory Tests 06/27/16 10/07/16 08:44 15:10 TSH 9.358 H 0.049 L ITS Impressions Fluoroscopy 10/11/16 09:25 IMPRESSION: Intraprocedural fluoroscopic spot images as above. See separate procedure report for more information. D/ / Breezy Wood MD / Breezy Wood MD Interpreting Provider: rBeezy Wood MD X-Ray 10/11/16 11:32 IMPRESSION: 1. Lucency at the left lung base. A pneumothorax cannot be excluded. PA chest x-ray is recommended for further evaluation. 2. Nonobstructive bowel gas pattern. 3. Aortobi-iliac endograft excludes a 5.9 cm abdominal aortic aneurysm. Results verbally communicated to the patient's nurse, Cris Cunningham, at 12:05 p.m. on 10/11/2016 by the [facility]. D/ / 10/11/2016 11:58:54 Aidan Goodson MD / augustina Interpreting Provider: Aidan Goodson MD Chest X-Ray 10/12/16 14:38 IMPRESSION: Chronic COPD. Right basal infiltrate may represent pneumonia. Trace of right pleural effusion. D/ / 10/12/2016 16:36:41 Bethany Poole MD / Alisha Chacon Interpreting Provider: Bethany Poole MD Chest X-Ray 10/13/16 08:00 IMPRESSION: Improved definition of the pulmonary vasculature suggesting decreased edema. Minimal residual right basilar airspace disease is present Moderate hiatal hernia. D/ / Day Quach Cha, MD / Day Quach Cha, MD Interpreting Provider: Day Quach Cha, MD Intake & Output 10/10/16 10/11/16 10/12/16 10/13/16 23:59 23:59 23:59 23:59 Intake Total 1160 / 1160 2875 / 2875 308 / 308 Output Total 375 / 375 3730 / 3730 450 / 450 Balance 785 / 785 -855 / -855 -142 / -142 Weight 51 kg 66.5 kg 50.5 kg Active Medications Acetaminophen (Tylenol) 650 mg PO Q6HR PRN PRN Reason: Mild Pain/Fever Stop: 04/12/17 12:36 Hydrocodone Bitart/Acetaminophen ([place] 5-325 Mg) 1 tab PO Q6HR PRN PRN Reason: Moderate Pain Stop: 04/12/17 12:36 Last Admin: 10/12/16 17:42 Dose: 1 tab Albuterol Sulfate (Albuterol Inhaler) 2 puff IH Q4HR PRN PRN Reason: Shortness Of Breath/Wheezing Stop: 04/12/17 12:36 Last Admin: 10/12/16 14:09 Dose: 2 puff Albuterol/Ipratropium (Duoneb) 3 ml IH [id number] GABRIEL Stop: 04/13/17 17:31 Last Admin: 10/13/16 10:36 Dose: 3 ml Budesonide/Formoterol Fumarate (Symbicort) 2 puff IH BIDRESP GABRIEL PRN Reason: Protocol Stop: 04/12/17 22:01 Last Admin: 10/13/16 10:36 Dose: 2 puff Diltiazem HCl (Cardizem) 30 mg PO Q6HR GABRIEL Stop: 04/14/17 12:01 Last Admin: 10/13/16 12:29 Dose: 30 mg Calcium Gluconate 1,000 mg/ (Dextrose) 110 mls @ 50 mls/hr IVPB Q6HR PRN PRN Reason: Hypocalcemia Stop: 04/14/17 04:13 Magnesium Sulfate 2 gm/ (Dextrose) 104 mls @ 50 mls/hr IVPB Q6H PRN PRN Reason: Hypomagnesemia Stop: 04/14/17 04:13 Levofloxacin/Dextrose (Levaquin Premix 500mg/100ml) 500 mg in 100 mls @ 100 mls /hr IVPB DAILY GABRIEL PRN Reason: Protocol Stop: 04/14/17 09:01 Last Infusion: 10/13/16 13:05 Dose: Infused Levothyroxine Sodium (Synthroid) 75 mcg PO 0630 GABRIEL Stop: 04/13/17 06:31 Last Admin: 10/13/16 06:20 Dose: 75 mcg Lorazepam (Ativan) 1 mg PO HS GABRIEL Stop: 04/12/17 21:01 Last Admin: 10/12/16 20:19 Dose: 1 mg Morphine Sulfate (Morphine Sulfate) 2 mg IVP Q4HR PRN PRN Reason: Moderate Pain Stop: 04/12/17 12:36 Morphine Sulfate (Morphine Sulfate) 4 mg IVP Q4HR PRN PRN Reason: Severe Pain Stop: 04/12/17 12:36 Multivitamins/Calcium (Thera M Plus) 1 tab PO QDPC GABRIEL Stop: 04/13/17 09:01 Last Admin: 10/13/16 08:10 Dose: 1 tab Naloxone HCl (Narcan) 0.4 mg IVP Q2MIN PRN PRN Reason: SEE COMMENTS Stop: 04/12/17 12:36 Omeprazole (Prilosec) 20 mg PO 0730 GABRIEL PRN Reason: Protocol Stop: 04/12/17 19:46 Last Admin: 10/13/16 06:19 Dose: 20 mg Pharmacy Profile Note (Patient Taking Own Medication) 0 each PO QPM GABRIEL Stop: 04/12/17 18:01 Last Admin: 10/12/16 17:43 Dose: Not Given Pharmacy Profile Note (Patient Taking Own Medication) 0 each PO QDPC GABRIEL Stop: 04/13/17 09:01 Last Admin: 10/13/16 07:50 Dose: Not Given Potassium Chloride (Potassium Chloride) 40 meq PO DAILY PRN PRN Reason: Hypokalemia Stop: 04/14/17 04:13 Potassium Phos/Sodium Phos (Neutra-Phos) 2 each PO DAILY PRN; Protocol PRN Reason: Hypophosphatemia Stop: 04/14/17 06:58 Last Admin: 10/13/16 13:13 Dose: 2 each Prednisone (Prednisone) 40 mg PO DAILY GABRIEL Stop: 04/14/17 09:01 Last Admin: 10/13/16 08:10 Dose: 40 mg - Imaging and Cardiology Chest Xray: report reviewed - EKG Interpretation EKG results cardiology: personally reviewed (afib), other (Telemetry reviewed with average heart rate the past 12 hours 101, longus colli 5.9 seconds, afibrillation noted, currently sinus rhythm in the 80s on telemetry) Consult Discharge Plan - Plan Instructions: Hydrocodone/Acetaminophen (By mouth), Blood Transfusion (DC), Peripheral Vascular Disorders (DC), Endovascular Abdominal Aortic Aneurysm Repair (DC), Anemia (GEN) Additional Instructions: Keep surgical incisions dry for 5 days following surgery. No lifting greater than 10 pounds. No automobile driving. Patient may ambulate as tolerated. Patient may use stairs as tolerated. Resume usual home medications. Patient will receive a prescription for iron supplement and [place] for analgesia upon discharge. Referrals: Flora Madsen CNP [Advanced Practice Nurse] - 10/17/16 10:30 am Eitan Isaac MD [Partnered Physician] - 10/21/16 8:30 am (This appointment is in [place]) Prescriptions: HYDROcodone/Acet 5/325 mg [[place] 5-325 mg] 1 tab PO Q6HR PRN #10 tab PRN Reason: Moderate Pain Ferrous Sulfate 324 mg PO BID #60 tablet.
--- NOTE | 2016-10-13 13:53 | Internal Med Progress Note ---
Date of Encounter: 10/13/16 Time of Encounter: 10:00 - Assessment and plan (1) AAA (abdominal aortic aneurysm) Current Visit: Yes Status: Acute Assessment and plan: Had EVAR done. Management per vascular physician. Qualifiers: Presence of rupture: without rupture Qualified Code(s): I71.4 - Abdominal aortic aneurysm, without rupture (2) CKD (chronic kidney disease) stage 3, GFR 30-59 ml/min Current Visit: Yes Status: Chronic Assessment and plan: Stable, Cr 1.1 today. (3) COPD (chronic obstructive pulmonary disease) with chronic bronchitis Current Visit: Yes Status: Chronic Assessment and plan: No signs of exacerbation. Patient has no wheezing. Continue home medications. (4) New onset a-fib Current Visit: Yes Status: Acute Assessment and plan: Patient denies history of heart disease. Converts to sinus rhythm now. Cardiology consult appreciated. On Cardizem by mouth. (5) Acute respiratory failure with hypoxia Current Visit: Yes Status: Acute Assessment and plan: Patient has COPD but not on home oxygen. Chest x-ray shows minimal infiltrate on the right lung base, repeated x-ray shows improvement. Pulmonology consult on this case. Levaquin IV started for pneumonia. (6) DVT prophylaxis Current Visit: Yes Status: Acute Assessment and plan: Can consider heparin subcutaneously if not contraindicated with vascular procedure. Put patient on EPCD now (7) Hypomagnesemia Current Visit: Yes Status: Acute Assessment and plan: Improved after magnesium supplement. Continue follow-up magnesium level. (8) Hypothyroidism Current Visit: Yes Status: Chronic Assessment and plan: Patient has a history of hypothyroidism. She was on Synthroid 50 g by mouth daily, recently increased to 75 g by mouth daily by PCP. TSH 0.049 on . will change to 62.5 mg po daily. Follow-up TSH as outpatient. Qualifiers: Hypothyroidism type: unspecified Qualified Code(s): E03.9 - Hypothyroidism , unspecified (9) Pneumonia Current Visit: Yes Status: Acute Assessment and plan: Patient chest x-ray shows right lower lobe infiltrate. Improved after antibiotic use. Consider community-acquired pneumonia. Continue Levaquin IV, may switch to by mouth upon discharge. Continue oxygen supportive treatment. May need home oxygen upon discharge. Qualifiers: Pneumonia type: due to Pneumococcus Laterality: right Lung location: lower lobe of lung Qualified Code(s): J13 - Pneumonia due to Streptococcus pneumoniae - Subjective Interval history: Patient is a 76-year-old female admitted for AAA endovascular repair. He has not had EVAR done on 10/11. Internal medicine consult was called last night for new onset A. fib with rapid ventricular response. I saw and examined the patient today. Patient feels fine, denies shortness of breath or chest pain or palpitation. Mild cough with yellowish sputum. Vital signs stable, needed 3 L oxygen to maintain oxygen saturation. - Constitutional Vitals: Temp Pulse Resp BP Pulse Ox 98.2 F 82 18 104/57 90 10/13/16 07:43 10/13/16 07:43 10/13/16 10:39 10/13/16 07:43 10/13/16 10:39 General appearance: Present: A&O X 3, no acute distress, answers questions appropriately - Head Head exam: Present: atraumatic, normocephalic - Eye Eye exam: Present: PERRL, conjuntiva pink, sclera anicteric Pupils: Present: PERRL - Neck Neck exam general surgery: Present: supple, trachea midline. Absent: lymphadenopathy - Respiratory Respiratory exam: Present: CTAB. Absent: accessory muscle use, rales, rhonchi, wheezes Additional comments: Coarse breath sound on Rt lung base. - Cardiovascular Cardiovascular exam: Present: RRR, +S1, +S2. Absent: diastolic murmur, gallop, rubs, systolic murmur - GI/Abdominal GI/Abdominal exam: Present: normal bowel sounds, soft, no peritoneal signs. Absent: distended, tenderness - Extremities Exam Extremities exam: Present: warm, radial pulses palpable and symetrical. Absent : calf tenderness, cyanotic, pedal edema - Neurological Exam Neurological exam: Present: CN II-XII intact, oriented X3, no focal deficits. Absent: pronater drift, facial droop, speech deficit - Skin Skin exam: Present: dry, intact Internal Medicine: Result - Labs CBC & Chem 7: 10/13/16 01:07 10/13/16 12:05 Labs: Short CBC 10/12/16 10/13/16 Range/Units 18:55 01:07 WBC 10.7 11.1 (4.3-11.1) K/mcL Hgb 9.4 L D 9.2 L (11.5-15.4) g/dL Hct 28.5 L 27.7 L (35.3-44.9) % Plt Count 129 L 127 L (140-400) K/mcL Neutrophils # 8.4 8.9 (1.6-8.9) K/mcL BMP 10/12/16 10/13/16 10/13/16 18:55 05:18 12:05 Sodium 138 133 L Potassium 3.1 L 3.6 4.0 Chloride 99 94 L Carbon Dioxide 32 H 34 H BUN 14 13 Creatinine 1.06 1.10 Glucose 123 H 113 H Calcium 8.4 L 8.5 L - Impressions Impressions Chest X-Ray 10/12/16 14:38 IMPRESSION: Chronic COPD. Right basal infiltrate may represent pneumonia. Trace of right pleural effusion. D/ / 10/12/2016 16:36:41 Bethany Poole MD / Alisha Chacon Interpreting Provider: Bethany Poole MD Chest X-Ray 10/13/16 08:00 IMPRESSION: Improved definition of the pulmonary vasculature suggesting decreased edema. Minimal residual right basilar airspace disease is present Moderate hiatal hernia. D/ / Day Quach Cha, MD / Day Quach Cha, MD Interpreting Provider: Day Quach Cha, MD - VTE Documentation of Mechanical Device: Intermittent pneumatic compression device Consult Discharge Plan - Plan Instructions: Hydrocodone/Acetaminophen (By mouth), Blood Transfusion (DC), Peripheral Vascular Disorders (DC), Endovascular Abdominal Aortic Aneurysm Repair (DC), Anemia (GEN) Additional Instructions: Keep surgical incisions dry for 5 days following surgery. No lifting greater than 10 pounds. No automobile driving. Patient may ambulate as tolerated. Patient may use stairs as tolerated. Resume usual home medications. Patient will receive a prescription for iron supplement and [place] for analgesia upon discharge. Referrals: Flora Madsen CNP [Advanced Practice Nurse] - 10/17/16 10:30 am Eitan Isaac MD [Partnered Physician] - 10/21/16 8:30 am (This appointment is in [place]) Prescriptions: HYDROcodone/Acet 5/325 mg [[place] 5-325 mg] 1 tab PO Q6HR PRN #10 tab PRN Reason: Moderate Pain Ferrous Sulfate 324 mg PO BID #60 tablet.
[2016-10-13] MEDS: MAG PO SCH (15:27)
[2016-10-13] MEDS: ASPIRIN PO SCH (15:27)
[2016-10-13] MEDS: CALCIUM CARBONATE PO SCH (15:27)
--- NOTE | 2016-10-13 19:00 | Electrocardiograph Report ---
[place] [id number] Test Date: 2016-10-12 Pat Name: Vicki Ortiz Department: 110 Room: 09 Gender: F Parts Counter Representative: KONG : [id number] Requested By: Eitan Isaac Order Number: [id number] Reading MD: Daniel Alvarenga MD Measurements Intervals [place] Rate: 148 P: DC: 0 QRS: 29 QRSD: 84 T: 0 QT: 215 QTc: 300 Interpretive Statements ATRIAL FIBRILLATION WITH RAPID VENTRICULAR RESPONSE Electronically Signed On 10-13-2016 18:58:49 EDT by Daniel Alvarenga MD
[2016-10-13 19:45] LABS: Ionized Calcium 1.14 mmol/L (1.15-1.35)
[2016-10-13 19:51] LABS: Phosphorous 2.5 mg/dL (2.3-4.7)
[2016-10-13] MEDS: *HR* LORazepam 1 MG TABLET PO SCH (21:06)
[2016-10-14] MEDS: Ipratropium/Albuterol Neb 3 ML IH SCH ×3 (03:55→16:21)
[2016-10-14 04:19] LABS: Eosinophils % 0.1 %; Hematocrit 25.8 % (35.3-44.9); Hemoglobin 8.5 g/dL (11.5-15.4); Immature Granulocytes % 0.7 % (0-4); Mean Corpuscular HGB Conc 32.9 g/dL (31.6-35.5); Mean Corpuscular Hemoglobin 29.7 pg (28.0-33.3); Mean Corpuscular Volume 90.2 fL (83.0-100.0); Mean Platelet Volume 11.2 fL (9.4-12.4); Monocytes # 0.8 K/mcL (0.0-1.3); Monocytes % 6.7 %; Neutrophils # 9.4 K/mcL (1.6-8.9); Platelet Count 118 K/mcL (140-400); Red Blood Count 2.86 M/mcL (3.82-4.97); Red Cell Distribution Width 17.3 % (11.5-14.5); Segmented Neutrophils % 83.5 %
[2016-10-14 04:38] LABS: Calcium 8.7 mg/dL (8.6-10.8)
[2016-10-14 05:08] LABS: Magnesium 1.6 mg/dL (1.6-2.6)
[2016-10-14 06:18] LABS: Phosphorous 4.3 mg/dL (2.3-4.7)
[2016-10-14] MEDS ORDERED: Levothyroxine 25 MCG TABLET PO SCH (06:30)
--- NOTE | 2016-10-14 07:59 | Cardiology Progress Note ---
Date of Encounter: 10/14/16 Time of Encounter: 08:00 Assessment and Plan (1) AAA (abdominal aortic aneurysm) Current Visit: Yes Status: Acute Per Cardiology: Status post endovascular abdominal aortic aneurysm repair Dr. Isaac October 11, 2016. Management per vascular surgery. Qualifiers: Presence of rupture: without rupture Qualified Code(s): I71.4 - Abdominal aortic aneurysm, without rupture (2) Acute blood loss as cause of postoperative anemia Current Visit: Yes Status: Acute Per Cardiology: Slightly improved status post one unit packed red blood cells. Continue to monitor closely. (3) Acute respiratory failure with hypoxia Current Visit: Yes Status: Acute Per Cardiology: Pulm following. Has COPd-- wright not use home O2. On antibiotics and steroids. (4) New onset a-fib Current Visit: Yes Status: Acute Per Cardiology: Apparent new onset A. fib and postoperative setting from endovascular AAA repair , acute blood loss anemia, hypomagnesemia, and acute on chronic respiratory failure. Telemetry shows sinus rhythm with no significant events or pauses. Systolic blood pressures in the 100s. We'll convert to Cardizem CD 120 mg by mouth daily. Echo showed EF preserved at 65%, moderate TR, no segmental wall motion abnormalities. Negative outpatient nonexercise nuclear perfusion imaging September 2016. Cardiology will sign off, follow-up as outpatient scheduled, reconsult as needed. Regarding long-term anticoagulation, discussed and reviewed with Dr. Alvarenga and Dr. Zana Mendez, recommend anticoagulation with aspirin only for now due to anemia, fall risk, recent surgery. Patient aware of increased stroke risk. Can reevaluate in outpatient setting anticoagulation with Coumadin versus novel agents if appropriate. Patient verbalized understanding and agreed with plan. Provided education regarding monitoring for strokelike symptoms. (5) Hypomagnesemia Current Visit: Yes Status: Acute Per Cardiology: Mg noted 0.09 and replaced to 2.5. Suspect contributing factor to afib. Monitor Mg and replace accordingly. (6) Hypothyroidism Current Visit: Yes Status: Chronic Per Cardiology: On synthroid, recent TSH 06/2016 9.358 and 10/07/16 0.049-- recommend further eval by hospitalist team (discussed with team). Qualifiers: Hypothyroidism type: unspecified Qualified Code(s): E03.9 - Hypothyroidism , unspecified Discussion w patient/family: The assessment and plan as outlined above was discussed with the patient and who expressed understanding and agreement. All questions were answered. Thank you for involving us in the care of your patient. Please call with any questions. Subjective Principal diagnosis: Afib Interval history: Patient denies any chest pain or palpitations. Reports some mild shortness of breath with exertional activities. Denies any significant concerns regarding her bilateral groin sites from surgery. Inquiry into discharge home today. Objective Vital Signs, Last 4 Hours Temp Pulse Resp BP Pulse Ox 10/14/16 07:33 97.7 F 66 16 88/49 97 10/14/16 05:15 97.8 F 83 16 104/68 90 General: Conversant, No Apparent Distress HEENT: Atraumatic, Normocephaly, Mucus Membranes Moist Neck: No JVD, Normal carotid pulses Cardiac: Reg Rate and Rhythm, Normal S1 and S2, No Murmur Lungs: Normal Breath Sounds, No Wheeze, Rales, Rhonchi Neuro: Alert and responsive, No focal deficits noted Abdomen: Soft, Non-Tender Skin: No rashes noted on visualized skin, Other (Bilateral groin incision site is well approximated, mild ecchymosis, no bleeding) Musculoskeletal: No Chest Wall Tenderness Extremities: No Clubbing, No Cyanosis, No Edema, Normal Pulses Results 10/14/16 03:57 10/14/16 03:57 Lab Results Laboratory Tests 10/14/16 10/14/16 03:57 03:57 Hgb 8.5 L Hct 25.8 L Potassium 4.0 Creatinine 1.31 H Est GFR (Non-Af Amer) 39 L Magnesium 1.6 Impressions Chest X-Ray 10/13/16 08:00 IMPRESSION: Improved definition of the pulmonary vasculature suggesting decreased edema. Minimal residual right basilar airspace disease is present Moderate hiatal hernia. D/ / Day Quach Cha, MD / Day Quach Cha, MD Interpreting Provider: Day Quach Cha, MD Active Medications Acetaminophen (Tylenol) 650 mg PO Q6HR PRN PRN Reason: Mild Pain/Fever Stop: 04/12/17 12:36 Hydrocodone Bitart/Acetaminophen ([place] 5-325 Mg) 1 tab PO Q6HR PRN PRN Reason: Moderate Pain Stop: 04/12/17 12:36 Last Admin: 10/12/16 17:42 Dose: 1 tab Albuterol Sulfate (Albuterol Inhaler) 2 puff IH Q4HR PRN PRN Reason: Shortness Of Breath/Wheezing Stop: 04/12/17 12:36 Last Admin: 10/12/16 14:09 Dose: 2 puff Albuterol/Ipratropium (Duoneb) 3 ml IH [id number] GABRIEL Stop: 04/13/17 17:31 Last Admin: 10/14/16 03:55 Dose: 3 ml Budesonide/Formoterol Fumarate (Symbicort) 2 puff IH BIDRESP GABRIEL PRN Reason: Protocol Stop: 04/12/17 22:01 Last Admin: 10/13/16 21:27 Dose: 2 puff Diltiazem HCl (Cardizem) 30 mg PO Q6HR GABRIEL Stop: 04/14/17 12:01 Last Admin: 10/14/16 06:19 Dose: 30 mg Calcium Gluconate 1,000 mg/ (Dextrose) 110 mls @ 50 mls/hr IVPB Q6HR PRN PRN Reason: Hypocalcemia Stop: 04/14/17 04:13 Last Infusion: 10/13/16 21:01 Dose: Infused Magnesium Sulfate 2 gm/ (Dextrose) 104 mls @ 50 mls/hr IVPB Q6H PRN PRN Reason: Hypomagnesemia Stop: 04/14/17 04:13 Last Admin: 10/14/16 06:20 Dose: 50 mls/hr Levofloxacin/Dextrose (Levaquin Premix 500mg/100ml) 500 mg in 100 mls @ 100 mls /hr IVPB DAILY GABRIEL PRN Reason: Protocol Stop: 04/14/17 09:01 Last Infusion: 10/13/16 13:05 Dose: Infused Levothyroxine Sodium (Synthroid) 62.5 mcg PO 0630 GABRIEL Stop: 04/15/17 06:31 Last Admin: 10/14/16 06:18 Dose: 62.5 mcg Lorazepam (Ativan) 1 mg PO HS [facility] Stop: 04/12/17 21:01 Last Admin: 10/13/16 21:06 Dose: 1 mg Morphine Sulfate (Morphine Sulfate) 2 mg IVP Q4HR PRN PRN Reason: Moderate Pain Stop: 04/12/17 12:36 Morphine Sulfate (Morphine Sulfate) 4 mg IVP Q4HR PRN PRN Reason: Severe Pain Stop: 04/12/17 12:36 Multivitamins/Calcium (Thera M Plus) 1 tab PO QDPC [facility] Stop: 04/13/17 09:01 Last Admin: 10/13/16 08:10 Dose: 1 tab Naloxone HCl (Narcan) 0.4 mg IVP Q2MIN PRN PRN Reason: SEE COMMENTS Stop: 04/12/17 12:36 Omeprazole (Prilosec) 20 mg PO 0730 GABRIEL PRN Reason: Protocol Stop: 04/12/17 19:46 Last Admin: 10/14/16 07:51 Dose: 20 mg Pharmacy Profile Note (Patient Taking Own Medication) 0 each PO QPM [facility] Stop: 04/12/17 18:01 Last Admin: 10/13/16 15:27 Dose: Not Given Pharmacy Profile Note (Patient Taking Own Medication) 0 each PO QDPC [facility] Stop: 04/13/17 09:01 Last Admin: 10/13/16 07:50 Dose: Not Given Potassium Chloride (Potassium Chloride) 40 meq PO DAILY PRN PRN Reason: Hypokalemia Stop: 04/14/17 04:13 Potassium Phos/Sodium Phos (Neutra-Phos) 2 each PO DAILY PRN; Protocol PRN Reason: Hypophosphatemia Stop: 04/14/17 06:58 Last Admin: 10/13/16 21:09 Dose: 2 each Prednisone (Prednisone) 40 mg PO DAILY [facility] Stop: 04/14/17 09:01 Last Admin: 10/13/16 08:10 Dose: 40 mg - EKG Interpretation EKG results cardiology: other (Telemetry reviewed with average heart rate 72, sinus rhythm, no recurrence of atrial fibrillation or significant positives noted.) - VTE Documentation of Mechanical Device: Intermittent pneumatic compression device Consult Discharge Plan - Plan Instructions: Hydrocodone/Acetaminophen (By mouth), Blood Transfusion (DC), Peripheral Vascular Disorders (DC), Endovascular Abdominal Aortic Aneurysm Repair (DC), Anemia (GEN) Additional Instructions: Keep surgical incisions dry for 5 days following surgery. No lifting greater than 10 pounds. No automobile driving. Patient may ambulate as tolerated. Patient may use stairs as tolerated. Resume usual home medications. Patient will receive a prescription for iron supplement and [place] for analgesia upon discharge. Referrals: Richi Monique MD [Partnered Physician] - (SENT WEB REQUEST ON 10-14-16 @ [phone] ) Flora Madsen CNP [Advanced Practice Nurse] - 10/17/16 10:30 am Eitan Isaac MD [Partnered Physician] - 10/21/16 8:30 am (This appointment is in [place]) Prescriptions: HYDROcodone/Acet 5/325 mg [[place] 5-325 mg] 1 tab PO Q6HR PRN #10 tab PRN Reason: Moderate Pain Aspirin 81 mg PO DAILY #60 Diltiazem CD (24hr) [Cardizem CD] 120 mg PO DAILY #30 Ferrous Sulfate 324 mg PO BID #60 tablet. Levofloxacin [Levaquin] 500 mg PO DAILY #7 tablet predniSONE [PredniSONE] 20 mg PO BIDWM #14 tab
[2016-10-14] MEDS: Levofloxacin 500 MG/100 ML 500 MG/100 ML BAG IVPB SCH (09:24)
[2016-10-14] MEDS: (Biotin [Biotin] 5 MG) PO SCH (09:24)
[2016-10-14] MEDS: Multivit/Ca/Min/Fe/FA 1 TAB TABLET PO SCH (09:24)
[2016-10-14] MEDS: predniSONE 20 MG TABLET PO SCH (09:25)
[2016-10-14] MEDS: Budesonide/Formoterol 160/4.5 MDI IH SCH (10:28)
[2016-10-14] MEDS ORDERED: Diltiazem CD (24hr) 120 MG CAPSULE PO SCH ×2 (12:15)
[2016-10-14] MEDS ORDERED: Aspirin 81 MG TAB.CHEW PO SCH (12:15)
--- NOTE | 2016-10-14 13:04 | Discharge Summary ---
Date of Encounter: 10/14/16 Time of Encounter: 13:02 - Discharge Diagnosis (1) AAA (abdominal aortic aneurysm) Priority: Primary Status: Acute Comments: Patient had endovascular repair of abdominal aortic aneurysm. Qualifiers: Presence of rupture: without rupture Qualified Code(s): I71.4 - Abdominal aortic aneurysm, without rupture (2) CKD (chronic kidney disease) stage 3, GFR 30-59 ml/min Priority: Secondary Status: Chronic Comments: Patient is under medical treatment for chronic kidney disease (3) COPD (chronic obstructive pulmonary disease) with chronic bronchitis Priority: Secondary Status: Chronic Comments: Patient had significant exacerbation of her COPD chronic bronchitis. This required ongoing supplemental O2. She also required a pulmonology consultation. Patient was started on a short course of prednisone and Levaquin which be continued as an outpatient for a total of 5 days. In addition the patient will be discharged on oxygen at 4 L per nasal cannula. (4) Acute blood loss as cause of postoperative anemia Priority: Secondary Status: Acute Comments: Hemoglobin was stable following 1 unit blood transfusion (5) New onset a-fib Priority: Secondary Status: Acute Comments: Patient had acute onset of atrial fibrillation on the afternoon of postoperative day #1. The patient responded to calcium channel carol therapy. Cardiology was seen the patient consultation. She will be discharged on long- acting Cardizem and aspirin. Her echocardiogram performed during this hospitalization showed no signs of thrombus in the atrium. - Discharge Medications Prescriptions: HYDROcodone/Acet 5/325 mg [[place] 5-325 mg] 1 tab PO Q6HR PRN #10 tab PRN Reason: Moderate Pain Aspirin 81 mg PO DAILY #60 Diltiazem CD (24hr) [Cardizem CD] 120 mg PO DAILY #30 Ferrous Sulfate 324 mg PO BID #60 tablet. Levofloxacin [Levaquin] 500 mg PO DAILY #7 tablet predniSONE [PredniSONE] 20 mg PO BIDWM #14 tab Home Medications: Albuterol Sulfate [Ventolin Hfa] 2 puff PO Q4HR PRN 10/11/16 [History] Aspirin/Calcium Carbonate/Mag [Bufferin 325 mg Tablet] 650 mg PO QPM 10/11/16 [ History] Biotin 5 mg PO QDPC 10/11/16 [History] Budesonide/Formoterol 160/4.5 [Symbicort 160/4.5] 2 puff PO BID 10/11/16 [ History] LORazepam [Ativan] 1 mg PO HS 10/11/16 [History] Levothyroxine Sodium [Levoxyl] 75 mcg PO QDPC 10/11/16 [History] Lisinopril [Zestril] 10 mg PO DAILY 10/11/16 [History] Multivitamin [Multivitamins] 1 each PO QDPC 10/11/16 [History] Omeprazole [PriLOSEC] 20 mg PO DAILY 10/11/16 [History] hydroCHLOROthiazide [Hydrochlorothiazide] 25 mg PO DAILY 10/11/16 [History] Ferrous Sulfate 324 mg PO BID #60 tablet. 10/12/16 [Rx] HYDROcodone/Acet 5/325 mg [[place] 5-325 mg] 1 tab PO Q6HR PRN #10 tab 10/12/16 [ Rx] Aspirin 81 mg PO DAILY #60 10/14/16 [Rx] Diltiazem CD (24hr) [Cardizem CD] 120 mg PO DAILY #30 10/14/16 [Rx] Levofloxacin [Levaquin] 500 mg PO DAILY #7 tablet 10/14/16 [Rx] predniSONE [PredniSONE] 20 mg PO BIDWM #14 tab 10/14/16 [Rx] Allergies/Adverse Reactions: Allergies Sulfa (Sulfonamide Antibiotics) Allergy (Verified 01/25/16 13:52) Hives Procedures/tests Complete & Pending: Procedures Performed prior 72 hours Category Date Time Status ECG 12 lead ECG [ECG] Stat Y 10/12/16 18:52 Completed EV echocardiogram Routine Y 10/14/16 13:36 Completed Date of admission: 10/11/16 12:31 Primary care physician: Sheila Herrera Consults: 10/12/16 19:24 Consult to Hospitalist [CONS] Stat Consulting Provider: Hospitalist Amanda Reason for Consult: New A.fib RVR Call Completed: Yes 10/13/16 07:52 Consult to Cardiology [CONS] Routine Comment: Consulting Provider: Cardiology Norma Reason for Consult: New onset A Fib Call Completed: No 10/13/16 14:28 Consult to Dairy Technologist [CONS] Routine Reason for SW Consult: Pt may need social help, her has dementia. 10/13/16 14:29 Consult to Occupational Therapy [CONS] Routine Comment: Evaluate, develop and implement POC Reason for Consult: weakness Consult to Physical Therapy [CONS] Routine Comment: Evaluate, develop and implement POC Reason for Consult: weakness Pulmonary Procedure(s) Performed: Endovascular repair of abdominal aortic aneurysm Discharging clinician: Eitan Isaac Anticipated date of discharge: 10/14/16 - Patient Status Disposition: Home Health Service Condition: Fair Functional capacity at discharge: independent ambulation Overall status at discharge: patient is progressing back to baseline - Discharge Instructions Instructions: Hydrocodone/Acetaminophen (By mouth), Blood Transfusion (DC), Peripheral Vascular Disorders (DC), Endovascular Abdominal Aortic Aneurysm Repair (DC), Anemia (GEN) Follow Up With: Richi Monique MD [Partnered Physician] - (SENT WEB REQUEST ON 10-14-16 @ [phone] ) Flora Madsen CNP [Advanced Practice Nurse] - 10/17/16 10:30 am Eitan Isaac MD [Partnered Physician] - 10/21/16 8:30 am (This appointment is in [place]) Additional Instructions: Keep surgical incisions dry for 5 days following surgery. No lifting greater than 10 pounds. No automobile driving. Patient may ambulate as tolerated. Patient may use stairs as tolerated. Resume usual home medications. Patient will receive a prescription for iron supplement and [place] for analgesia upon discharge. - Diet and Activity Activity: increase activity as tolerated, wear oxygen at all times Diet: advance to your usual diet - Hospital Course Hospital course: Ms. Ortiz is a 76 year old female As found to have a 5.5 cm abdominal aortic aneurysm on evaluation for left hip pain. Patient was worked up and came to the hospital had surgery on Friday. On the afternoon of postoperative day #1 the patient developed atrial fibrillation. She was also found to be hypoxemic requiring O2 supplement prior to the onset of atrial fibrillation. Because of these issues and patient was aggressively diuresed and consultations were obtained with the hospitalist, pulmonology, and cardiology. An echocardiogram was also performed. Patient converted back to sinus rhythm. Patient will be discharged on this operative day #3. The patient will receive home health care as well as outpatient physical therapy. She'll be discharged on oxygen at 4 L per nasal cannula continuously. Instructions were given in regards to diet and medications and wound care prior to discharge. - Time Spent with Patient Total time spent providing and/or coordinating discharge services: Exam Vital Signs, Last 4 Hours Temp Pulse Resp BP Pulse Ox 10/14/16 12:51 73 86 10/14/16 11:01 97.4 F L 74 18 102/56 94 10/14/16 10:09 67 103/55 93 General: Present: Conversant, No Apparent Distress, Well developed HEENT: Present: Atraumatic Neck: Absent: JVD Cardiac: Present: Reg Rate and Rhythm, No Murmur Lungs: Present: Decreased breath sounds Neuro: Present: Alert and responsive, No focal deficits noted Abdomen: Present: Soft, Non-tender. Absent: Masses Vascular: Present: Pulse, normal, Surgical incisions (Clean and dry) Skin: Present: No rashes noted on visualized skin - VTE Documentation of Mechanical Device: Intermittent pneumatic compression device
--- NOTE | 2016-10-14 13:19 | Physician Discharge Referral ---
Home Health/Hosp Referral Info Transfer to: Home Health Attending Provider: [place] Provider in Charge Post Discharge: PCP - Diagnosis (1) AAA (abdominal aortic aneurysm) Priority: Primary Status: Acute (2) CKD (chronic kidney disease) stage 3, GFR 30-59 ml/min Priority: Secondary Status: Chronic (3) COPD (chronic obstructive pulmonary disease) with chronic bronchitis Priority: Secondary Status: Chronic (4) Acute blood loss as cause of postoperative anemia Priority: Secondary Status: Acute (5) New onset a-fib Priority: Secondary Status: Acute - Respiratory Orders Oxygen / L per min (4 L) Smoking Cessation: Smoking cessation has been advised. For more information, call the [employer] Tobacco Quit Line at 8-797-PWQQ-NOW. - Activity Activity Orders: Up ad henna - Services Needed Following services are medically necessary services: Nursing, Physical Therapy - Transfer Medications Prescriptions: HYDROcodone/Acet 5/325 mg [[place] 5-325 mg] 1 tab PO Q6HR PRN #10 tab PRN Reason: Moderate Pain Aspirin 81 mg PO DAILY #60 Diltiazem CD (24hr) [Cardizem CD] 120 mg PO DAILY #30 Ferrous Sulfate 324 mg PO BID #60 tablet. Levofloxacin [Levaquin] 500 mg PO DAILY #7 tablet predniSONE [PredniSONE] 20 mg PO BIDWM #14 tab Home Medications: Albuterol Sulfate [Ventolin Hfa] 2 puff PO Q4HR PRN 10/11/16 [History] Aspirin/Calcium Carbonate/Mag [Bufferin 325 mg Tablet] 650 mg PO QPM 10/11/16 [ History] Biotin 5 mg PO QDPC 10/11/16 [History] Budesonide/Formoterol 160/4.5 [Symbicort 160/4.5] 2 puff PO BID 10/11/16 [ History] LORazepam [Ativan] 1 mg PO HS 10/11/16 [History] Levothyroxine Sodium [Levoxyl] 75 mcg PO QDPC 10/11/16 [History] Lisinopril [Zestril] 10 mg PO DAILY 10/11/16 [History] Multivitamin [Multivitamins] 1 each PO QDPC 10/11/16 [History] Omeprazole [PriLOSEC] 20 mg PO DAILY 10/11/16 [History] hydroCHLOROthiazide [Hydrochlorothiazide] 25 mg PO DAILY 10/11/16 [History] Ferrous Sulfate 324 mg PO BID #60 tablet. 10/12/16 [Rx] HYDROcodone/Acet 5/325 mg [Leslie 5-325 mg] 1 tab PO Q6HR PRN #10 tab 10/12/16 [ Rx] Aspirin 81 mg PO DAILY #60 10/14/16 [Rx] Diltiazem CD (24hr) [Cardizem CD] 120 mg PO DAILY #30 10/14/16 [Rx] Levofloxacin [Levaquin] 500 mg PO DAILY #7 tablet 10/14/16 [Rx] predniSONE [PredniSONE] 20 mg PO BIDWM #14 tab 10/14/16 [Rx] Allergies/Adverse Reactions: Allergies Sulfa (Sulfonamide Antibiotics) Allergy (Verified 01/25/16 13:52) Hives Certification: Further, I certify that my clinical findings support that this patient is homebound (i.e. absences from home require considerable and taxing effort and are for medical reasons or congregation services or infrequently or short duration when for other reasons) because: Homebound Reason: Patient requires assistance of a person or device to safely leave home, Post-surgery restriction and or conditions limit ability to leave home, Leaving home requires considerable and taxing effort due to condition, Severity of cardiac or pulmonary status limits activity tolerance Attestation: My signature below is to certify that this patient is under my care and that I, or nurse practitioner, or a physician's seismic survey assistant working with me, has a face-to -face encounter with this patient.
[2016-10-14 15:16] VITALS: BP 94/63
--- NOTE | 2016-10-14 17:37 | Pulmonology Progress Note ---
Date of Encounter: 10/14/16 Time of Encounter: 12:30 Assessment and Plan (1) COPD with acute exacerbation Current Visit: Yes Status: Acute Overall patient is feeling better and discussed with Dr. Tovar about the discharge plan. Patient can be on prednisone 40 mg and current antibiotics for total of 5 days and she already had her bronchodilators at home to continue that. Patient is qualified for oxygen. I have explained to the patient to follow-up in the clinic in about a month and we will do a 6 minute walk to check if needs for continuation of oxygen. Thank you very much for the consultation and please do not hesitate to questions. (2) AAA (abdominal aortic aneurysm) Current Visit: Yes Status: Acute Qualifiers: Presence of rupture: without rupture Qualified Code(s): I71.4 - Abdominal aortic aneurysm, without rupture (3) COPD (chronic obstructive pulmonary disease) with chronic bronchitis Current Visit: Yes Status: Chronic Subjective Principal diagnosis: Afib Interval history: Patient is overall feeling better and her SPO2 is around 88% during my examination Objective PUL Vital signs: Last Vital Signs Temp 97.4 F L 10/14/16 11:01 Pulse 73 10/14/16 15:09 Resp 18 10/14/16 11:01 BP 94/63 10/14/16 15:09 Pulse Ox 90 10/14/16 15:09 General appearance: no acute distress Eyes: nonicteric ENT: oropharynx moist Neck: supple Effort: normal Auscultation: bilateral: diminished breath sounds Percussion: bilateral: not dull Gastrointestinal: normoactive bowel sounds normal mental status, non-focal exam mood appropriate Results - Laboratory Findings CBC and BMP: 10/14/16 03:57 10/14/16 03:57 Abnormal lab findings: Abnormal lab results WBC 11.3 K/mcL (4.3-11.1) H 10/14/16 03:57 RBC 2.86 M/mcL (3.82-4.97) L 10/14/16 03:57 Hgb 8.5 g/dL (11.5-15.4) L 10/14/16 03:57 Hct 25.8 % (35.3-44.9) L 10/14/16 03:57 RDW 17.3 % (11.5-14.5) H 10/14/16 03:57 Plt Count 118 K/mcL (140-400) L 10/14/16 03:57 Neutrophils # 9.4 K/mcL (1.6-8.9) H 10/14/16 03:57 Sodium 135 mEq/L (136-145) L 10/14/16 03:57 Chloride 96 mEq/L (98-109) L 10/14/16 03:57 Carbon Dioxide 32 mEq/L (19-29) H 10/14/16 03:57 Creatinine 1.31 mg/dL (0.57-1.11) H 10/14/16 03:57 Est GFR ( Amer) 48 (> 60) L 10/14/16 03:57 Est GFR (Non-Af Amer) 39 (> 60) L 10/14/16 03:57 Glucose 118 mg/dL (70-99) H 10/14/16 03:57 Ionized Calcium 1.14 mmol/L (1.15-1.35) L 10/13/16 19:13 B-Natriuretic Peptide 903 pg/mL (0-100) H 10/13/16 07:54 - Microbiology Findings Microbiology Findings: Microbiology, Last 48 Hours 10/12/16 17:54 Blood Culture - Preliminary Peripheral Venipuncture No growth. 10/12/16 17:52 Blood Culture - Preliminary Peripheral Venipuncture No growth. 10/13/16 01:00 Sputum Culture - Preliminary Sputum - Clinical Findings Intake & Output: Intake & Output 10/14/16 10/14/16 10/14/16 07:59 15:59 23:59 Intake Total 404 / 404 Output Total 675 / 675 200 / 200 Balance -675 / -675 204 / 204 Weight 50.4 kg - VTE Documentation of Mechanical Device: Intermittent pneumatic compression device Consult Discharge Plan - Plan Instructions: Diltiazem (By mouth), Hydrocodone/Acetaminophen (By mouth), Prednisone (By mouth), Aspirin (By mouth), Levofloxacin (By mouth), Atrial Fibrillation (DC), Blood Transfusion (DC), Peripheral Vascular Disorders (DC), Using Oxygen at Home (DC), Chronic Obstructive Pulmonary Disease (DC), Chronic Bronchitis (DC), Endovascular Abdominal Aortic Aneurysm Repair (DC), Anemia (GEN ), Hypoxia (GEN) Additional Instructions: Keep surgical incisions dry for 5 days following surgery. No lifting greater than 10 pounds. No automobile driving. Patient may ambulate as tolerated. Patient may use stairs as tolerated. Resume usual home medications. Patient will receive a prescription for iron supplement and [place] for analgesia upon discharge. Referrals: Richi Monique MD [Partnered Physician] - (SENT WEB REQUEST ON 10-14-16 @ [phone] ) Flora Madsen CNP [Advanced Practice Nurse] - 10/17/16 10:30 am Eitan Isaac MD [Partnered Physician] - 10/21/16 8:30 am (This appointment is in [place]) Prescriptions: HYDROcodone/Acet 5/325 mg [[place] 5-325 mg] 1 tab PO Q6HR PRN #10 tab PRN Reason: Moderate Pain Aspirin 81 mg PO DAILY #60 Diltiazem CD (24hr) [Cardizem CD] 120 mg PO DAILY #30 Ferrous Sulfate 324 mg PO BID #60 tablet. Levofloxacin [Levaquin] 500 mg PO DAILY #7 tablet predniSONE [PredniSONE] 20 mg PO BIDWM #14 tab
--- NOTE | 2016-10-14 17:38 | Internal Med Progress Note ---
Date of Encounter: 10/14/16 Time of Encounter: 10:00 - Assessment and plan (1) AAA (abdominal aortic aneurysm) Current Visit: Yes Status: Acute Assessment and plan: Had EVAR done. Management per vascular physician. Qualifiers: Qualified Code(s): I71.4 - Abdominal aortic aneurysm, without rupture (2) CKD (chronic kidney disease) stage 3, GFR 30-59 ml/min Current Visit: Yes Status: Chronic Assessment and plan: Stable, Cr 1.1 today. (3) COPD (chronic obstructive pulmonary disease) with chronic bronchitis Current Visit: Yes Status: Chronic Assessment and plan: No signs of exacerbation. Patient has no wheezing. Continue home medications. (4) New onset a-fib Current Visit: Yes Status: Acute Assessment and plan: Patient denies history of heart disease. Converts to sinus rhythm now. Cardiology consult appreciated. On Cardizem by mouth. ASA for CVA prevention at this point. (5) Acute respiratory failure with hypoxia Current Visit: Yes Status: Acute Assessment and plan: Patient has COPD but not on home oxygen. Chest x-ray shows minimal infiltrate on the right lung base, repeated x-ray shows improvement. Pulmonology consult on this case. On levaquin. (6) DVT prophylaxis Current Visit: Yes Status: Acute Assessment and plan: Can consider heparin subcutaneously if not contraindicated with vascular procedure. Put patient on EPCD now (7) Hypomagnesemia Current Visit: Yes Status: Acute Assessment and plan: Improved after magnesium supplement. Continue follow-up magnesium level. (8) Hypothyroidism Current Visit: Yes Status: Chronic Assessment and plan: Patient has a history of hypothyroidism. She was on Synthroid 50 g by mouth daily, recently increased to 75 g by mouth daily by PCP. TSH 0.049 on . will change to 62.5 mg po daily. Follow-up TSH as outpatient. Qualifiers: Qualified Code(s): E03.9 - Hypothyroidism, unspecified - Time Spent With Patient 25 - 35 minutes - Subjective Interval history: Patient is a 76-year-old female admitted for AAA endovascular repair. He has not had EVAR done on 10/11. Internal medicine consult was called last night for new onset A. fib with rapid ventricular response. I saw and examined the patient today. Patient feels fine, denies shortness of breath or chest pain or palpitation. Mild cough with yellowish sputum. Vital signs stable, needed 3 L oxygen to maintain oxygen saturation. - Constitutional Vitals: Temp Pulse Resp BP Pulse Ox 97.4 F L 73 18 94/63 90 10/14/16 11:01 10/14/16 15:09 10/14/16 11:01 10/14/16 15:09 10/14/16 15:09 General appearance: Present: A&O X 3, no acute distress, answers questions appropriately - Head Head exam: Present: atraumatic, normocephalic - Eye Eye exam: Present: PERRL, conjuntiva pink, sclera anicteric Pupils: Present: PERRL - Neck Neck exam general surgery: Present: supple, trachea midline. Absent: lymphadenopathy - Respiratory Respiratory exam: Present: CTAB. Absent: accessory muscle use, rales, rhonchi, wheezes - Cardiovascular Cardiovascular exam: Present: RRR, +S1, +S2. Absent: diastolic murmur, gallop, rubs, systolic murmur - GI/Abdominal GI/Abdominal exam: Present: normal bowel sounds, soft, no peritoneal signs. Absent: distended, tenderness - Extremities Exam Extremities exam: Present: warm, radial pulses palpable and symetrical. Absent : calf tenderness, cyanotic, pedal edema - Neurological Exam Neurological exam: Present: CN II-XII intact, oriented X3, no focal deficits. Absent: pronater drift, facial droop, speech deficit - Skin Skin exam: Present: dry, intact Internal Medicine: Result - Labs CBC & Chem 7: 10/14/16 03:57 10/14/16 03:57 Labs: Short CBC 10/14/16 Range/Units 03:57 WBC 11.3 H (4.3-11.1) K/mcL Hgb 8.5 L (11.5-15.4) g/dL Hct 25.8 L (35.3-44.9) % Plt Count 118 L (140-400) K/mcL Neutrophils # 9.4 H (1.6-8.9) K/mcL BMP 10/14/16 03:57 Sodium 135 L Potassium 4.0 Chloride 96 L Carbon Dioxide 32 H BUN 19 Creatinine 1.31 H Glucose 118 H Calcium 8.7 - VTE Documentation of Mechanical Device: Intermittent pneumatic compression device Consult Discharge Plan - Plan Instructions: Diltiazem (By mouth), Hydrocodone/Acetaminophen (By mouth), Prednisone (By mouth), Aspirin (By mouth), Levofloxacin (By mouth), Atrial Fibrillation (DC), Blood Transfusion (DC), Peripheral Vascular Disorders (DC), Using Oxygen at Home (DC), Chronic Obstructive Pulmonary Disease (DC), Chronic Bronchitis (DC), Endovascular Abdominal Aortic Aneurysm Repair (DC), Anemia (GEN ), Hypoxia (GEN) Additional Instructions: Keep surgical incisions dry for 5 days following surgery. No lifting greater than 10 pounds. No automobile driving. Patient may ambulate as tolerated. Patient may use stairs as tolerated. Resume usual home medications. Patient will receive a prescription for iron supplement and [place] for analgesia upon discharge. Referrals: Richi Monique MD [Partnered Physician] - (SENT WEB REQUEST ON 10-14-16 @ [phone] ) Flora Madsen CNP [Advanced Practice Nurse] - 10/17/16 10:30 am Eitan Isaac MD [Partnered Physician] - 10/21/16 8:30 am (This appointment is in [place]) Prescriptions: HYDROcodone/Acet 5/325 mg [[place] 5-325 mg] 1 tab PO Q6HR PRN #10 tab PRN Reason: Moderate Pain Aspirin 81 mg PO DAILY #60 Diltiazem CD (24hr) [Cardizem CD] 120 mg PO DAILY #30 Ferrous Sulfate 324 mg PO BID #60 tablet. Levofloxacin [Levaquin] 500 mg PO DAILY #7 tablet predniSONE [PredniSONE] 20 mg PO BIDWM #14 tab
[2016-10-14] MEDS: CALCIUM CARBONATE PO SCH (18:59)
[2016-10-14] MEDS: MAG PO SCH (18:59)
[2016-10-14] MEDS: ASPIRIN PO SCH (18:59)
[2016-10-15] MEDS ORDERED: Levofloxacin 750 MG/150 ML 750 MG/150 ML BAG IVPB SCH (09:00)
== END 2016-10-14 18:45 | disposition home health service (06) | DRG 268 ==
LOC: SAMDAY 06:42 → 2NNU 12:31 → UNDODISIN 10-12 14:15
PROVIDERS: ADMIT Surgery Vascular Surgery; ATTEND Surgery Vascular Surgery